=== PATIENT | male | born 1930 | race Caucasian/White ===

== ENCOUNTER 2018-07-17 12:47 | Inpatient (IN) | payer MEDICARE, BC ==
--- NOTE | 2018-07-17 13:13 | ED ---
General Adult HPI - General Chief complaint: Shortness of Breath Stated complaint: altered Time Seen by Provider: 07/17/18 12:50 Source: EMS, RN notes reviewed Mode of arrival: ambulatory Limitations: no limitations - History of Present Illness Initial comments: This is an 87-year-old male with past medical history significant for recent pneumonia for which is been treated high cholesterol and previous bypass surgery. Patient is unable to give any significant history currently there is no family with. The history I received from EMS and the nurses received from the detention was that the patient is more altered mentally and his difficulty breathing has worsened and he sounds as though he is wetter when he coughs. There is been no history of fevers there's been no history of any chest pain is been no history of abdominal pain no history of nausea vomiting or diarrhea. When I asked the patient if he isn't in any pain he denies. - Related Data Home Medications Medication Instructions Recorded Confirmed Citalopram Hydrobromide [CeleXA] 10 mg PO DAILY 03/21/14 07/17/18 Metoprolol Tartrate [Lopressor] 25 mg PO BID 09/29/15 07/17/18 Acetaminophen [Tylenol] 650 mg PO Q6HR PRN 09/30/15 07/17/18 Levothyroxine Sodium [Synthroid] 50 mcg PO DAILY 08/01/17 07/17/18 Amino Acids/Protein Hydrolys 30 ml PO DAILY 07/17/18 07/17/18 [Pro-Stat Supplement] Azithromycin [Zithromax] 250 mg PO DAILY 07/17/18 07/17/18 Bisacodyl [Dulcolax] 10 mg RECTAL DAILY PRN 07/17/18 07/17/18 Diclofenac Sodium [Voltaren Gel] 2 gram TOPICAL DAILY PRN 07/17/18 07/17/18 Ipratropium-Albuterol Nebulize 3 ml INHALATION RT-Q6H PRN 07/17/18 07/17/18 [Duoneb 0.5 mg-3 mg/3 ml Soln] Polymyxin B-Trimeth Sulf Ophth 1 drops BOTH EYES Q4H 07/17/18 07/17/18 [Polytrim Opthalmic] Pravastatin Sodium [Pravachol] 80 mg PO HS 07/17/18 07/17/18 Warfarin Sodium 6 mg PO HS 07/17/18 07/17/18 Warfarin [Coumadin] 0.5 mg PO HS 07/17/18 07/17/18 guaiFENesin [Diabetic Tussin Ex] 200 mg PO Q6H PRN 07/17/18 07/17/18 Previous Rx's Medication Instructions Recorded Isosorbide Mononitrate ER [Imdur] 15 mg PO DAILY dose 08/04/17 Allergies Allergy/AdvReac Type Severity Reaction Status Date / Time Penicillins Allergy Rash/Hives Verified 07/17/18 13:23 Review of Systems ROS Statement: Those systems with pertinent positive or pertinent negative responses have been documented in the HPI. ROS Other: All systems not noted in ROS Statement are negative. 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 Last Myocardial Infarction Date:: 2008 History of Any Multi-Drug Resistant Organisms: None Reported Past Surgical History: Adenoidectomy, Appendectomy, Coronary Bypass/CABG, Heart Catheterization With Stent, Hernia Repair, Joint Replacement, Prostate Surgery, Tonsillectomy Additional Past Surgical History / Comment(s): Inferior vena cava filter placement, bilateral cataracts removed, prostatectomy, total L hip arthroplasty , back surgery, bowel resection d/t cancer, colonoscopy, Past Anesthesia/Blood Transfusion Reactions: No Reported Reaction Date of Last Stent Placement:: 2008 Past Psychological History: No Psychological Hx Reported Smoking Status: Former smoker Past Alcohol Use History: None Reported Past Drug Use History: None Reported - Past Family History Mother History Unknown: Yes General Exam - General Exam Comments Initial Comments: GENERAL: Patient is well-developed and well-nourished. Patient is nontoxic and well- hydrated and is in mild distress. ENT: Neck is soft and supple. No significant lymphadenopathy is noted. Oropharynx is clear. Moist mucous membranes. Neck has full range of motion without eliciting any pain. EYES: The sclera were anicteric and conjunctiva were pink and moist. Extraocular movements were intact and pupils were equal round and reactive to light. Eyelids were unremarkable. PULMONARY: Patient does not take good breaths but there is some crackles in the left base CARDIOVASCULAR: There is a regular rate and rhythm without any murmurs gallops or rubs. ABDOMEN: Soft and nontender with normal bowel sounds. No palpable organomegaly was noted. There is no palpable pulsatile mass. SKIN: Skin is clear with no lesions or rashes and otherwise unremarkable. NEUROLOGIC: Patient is alert and oriented x3. Cranial nerves II through XII are grossly intact. Motor and sensory are also intact. Normal speech, volume and content. Symmetrical smile. MUSCULOSKELETAL: Normal extremities with adequate strength and full range of motion. LYMPHATICS: No significant lymphadenopathy is noted PSYCHIATRIC: Unable to assess secondary to the fact that he is altered Limitations: no limitations Course Vital Signs 07/17/18 07/17/18 07/17/18 12:49 12:50 13:00 Temperature 98.5 F Pulse Rate 96 96 Respiratory 22 46 H Rate Blood Pressure 123/55 123/55 O2 Sat by Pulse 92 L 95 93 L Oximetry 07/17/18 07/17/18 07/17/18 13:10 13:20 13:30 Temperature Pulse Rate 91 93 94 Respiratory 36 H 33 H 19 Rate Blood Pressure 105/45 105/45 105/45 O2 Sat by Pulse 91 L 93 L 93 L Oximetry 07/17/18 07/17/18 07/17/18 13:31 13:40 13:50 Temperature Pulse Rate 94 Respiratory 24 30 H Rate Blood Pressure 114/58 114/58 O2 Sat by Pulse 92 L Oximetry 07/17/18 07/17/18 07/17/18 14:00 14:10 14:20 Temperature Pulse Rate 92 Respiratory 24 28 H 40 H Rate Blood Pressure 114/58 109/69 109/69 O2 Sat by Pulse 92 L 92 L 93 L Oximetry 07/17/18 07/17/18 07/17/18 14:30 14:40 14:50 Temperature Pulse Rate 93 93 Respiratory 15 18 15 Rate Blood Pressure 109/69 119/70 119/70 O2 Sat by Pulse 94 L 94 L 95 Oximetry 07/17/18 07/17/18 15:00 15:09 Temperature 98.2 F Pulse Rate 93 93 Respiratory 8 L 25 H Rate Blood Pressure 119/70 100/50 O2 Sat by Pulse 94 L 95 Oximetry Medical Decision Making - Medical Decision Making EKG shows normal sinus rhythm at 95 bpm AL interval is 170 QRS is 90 QT interval 382 QTC is 480. Patient's EKG shows T-wave inversions in V1 and V2 V3 and V4. These were not seen on previous EKG. Chest x-ray shows a pattern consistent with atypical pneumonia. I started the patient on Zosyn and Levaquin. Patient's lactic was mildly elevated. Patient had a high white count with the shift. I spoke with because I admitted the patient he agreed to accept the admission. - Lab Data Result diagrams: 07/17/18 13:31 07/17/18 13:31 Lab Results 07/17/18 07/17/18 07/17/18 Range/Units 13:31 13:31 13:31 WBC 18.8 H (3.8-10.6) k/uL RBC 4.20 L (4.30-5.90) m/uL Hgb 11.6 L (13.0-17.5) gm/dL Hct 36.4 L (39.0-53.0) % MCV 86.6 (80.0-100.0) fL MCH 27.5 (25.0-35.0) pg MCHC 31.8 (31.0-37.0) g/dL RDW 14.8 (11.5-15.5) % Plt Count 386 (150-450) k/uL Neutrophils % 85 % Lymphocytes % 9 % Monocytes % 4 % Eosinophils % 1 % Basophils % 0 % Neutrophils # 16.1 H (1.3-7.7) k/uL Lymphocytes # 1.7 (1.0-4.8) k/uL Monocytes # 0.7 (0-1.0) k/uL Eosinophils # 0.2 (0-0.7) k/uL Basophils # 0.0 (0-0.2) k/uL Hypochromasia Moderate PT (9.0-12.0) sec INR (<1.2) APTT (22.0-30.0) sec Sodium 142 (137-145) mmol/L Potassium 4.0 (3.5-5.1) mmol/L Chloride 105 (98-107) mmol/L Carbon Dioxide 30 (22-30) mmol/L Anion Gap 7 mmol/L BUN 32 H (9-20) mg/dL Creatinine 0.74 (0.66-1.25) mg/dL Est GFR (CKD-EPI)AfAm >90 (>60 ml/min/1.73 sqM) Est GFR (CKD-EPI)NonAf 82 (>60 ml/min/1.73 sqM) Glucose 121 H (74-99) mg/dL Plasma Lactic Acid Jassi (0.7-2.0) mmol/L Calcium 9.0 (8.4-10.2) mg/dL Magnesium 2.2 (1.6-2.3) mg/dL Total Bilirubin 0.6 (0.2-1.3) mg/dL AST 22 (17-59) U/L ALT 17 L (21-72) U/L Alkaline Phosphatase 91 (38-126) U/L Total Creatine Kinase 29 L (55-170) U/L CK-MB (CK-2) 1.6 (0.0-2.4) ng/mL CK-MB (CK-2) Rel Index 5.5 Troponin I <0.012 (0.000-0.034) ng/mL NT-Pro-B Natriuret Pep pg/mL Total Protein 6.3 (6.3-8.2) g/dL Albumin 2.7 L (3.5-5.0) g/dL Urine Color Urine Appearance (Clear) Urine pH (5.0-8.0) Ur Specific [place] (1.001-1.035) Urine Protein (Negative) Urine Glucose (UA) (Negative) Urine Ketones (Negative) Urine Blood (Negative) Urine Nitrite (Negative) Urine Bilirubin (Negative) Urine Urobilinogen (<2.0) mg/dL Ur Leukocyte Esterase (Negative) Urine RBC (0-5) /hpf Urine WBC (0-5) /hpf Hyaline Casts (0-2) /lpf Urine Mucus (None) /hpf 07/17/18 07/17/18 07/17/18 Range/Units 13:31 13:31 13:31 WBC (3.8-10.6) k/uL RBC (4.30-5.90) m/uL Hgb (13.0-17.5) gm/dL Hct (39.0-53.0) % MCV (80.0-100.0) fL MCH (25.0-35.0) pg MCHC (31.0-37.0) g/dL RDW (11.5-15.5) % Plt Count (150-450) k/uL Neutrophils % % Lymphocytes % % Monocytes % % Eosinophils % % Basophils % % Neutrophils # (1.3-7.7) k/uL Lymphocytes # (1.0-4.8) k/uL Monocytes # (0-1.0) k/uL Eosinophils # (0-0.7) k/uL Basophils # (0-0.2) k/uL Hypochromasia PT 62.1 H (9.0-12.0) sec INR 6.8 H* (<1.2) APTT 40.9 H (22.0-30.0) sec Sodium (137-145) mmol/L Potassium (3.5-5.1) mmol/L Chloride (98-107) mmol/L Carbon Dioxide (22-30) mmol/L Anion Gap mmol/L BUN (9-20) mg/dL Creatinine (0.66-1.25) mg/dL Est GFR (CKD-EPI)AfAm (>60 ml/min/1.73 sqM) Est GFR (CKD-EPI)NonAf (>60 ml/min/1.73 sqM) Glucose (74-99) mg/dL Plasma Lactic Acid Jassi 2.1 H* (0.7-2.0) mmol/L Calcium (8.4-10.2) mg/dL Magnesium (1.6-2.3) mg/dL Total Bilirubin (0.2-1.3) mg/dL AST (17-59) U/L ALT (21-72) U/L Alkaline Phosphatase (38-126) U/L Total Creatine Kinase (55-170) U/L CK-MB (CK-2) (0.0-2.4) ng/mL CK-MB (CK-2) Rel Index Troponin I (0.000-0.034) ng/mL NT-Pro-B Natriuret Pep 1210 pg/mL Total Protein (6.3-8.2) g/dL Albumin (3.5-5.0) g/dL Urine Color Urine Appearance (Clear) Urine pH (5.0-8.0) Ur Specific [place] (1.001-1.035) Urine Protein (Negative) Urine Glucose (UA) (Negative) Urine Ketones (Negative) Urine Blood (Negative) Urine Nitrite (Negative) Urine Bilirubin (Negative) Urine Urobilinogen (<2.0) mg/dL Ur Leukocyte Esterase (Negative) Urine RBC (0-5) /hpf Urine WBC (0-5) /hpf Hyaline Casts (0-2) /lpf Urine Mucus (None) /hpf 07/17/18 Range/Units 13:46 WBC (3.8-10.6) k/uL RBC (4.30-5.90) m/uL Hgb (13.0-17.5) gm/dL Hct (39.0-53.0) % MCV (80.0-100.0) fL MCH (25.0-35.0) pg MCHC (31.0-37.0) g/dL RDW (11.5-15.5) % Plt Count (150-450) k/uL Neutrophils % % Lymphocytes % % Monocytes % % Eosinophils % % Basophils % % Neutrophils # (1.3-7.7) k/uL Lymphocytes # (1.0-4.8) k/uL Monocytes # (0-1.0) k/uL Eosinophils # (0-0.7) k/uL Basophils # (0-0.2) k/uL Hypochromasia PT (9.0-12.0) sec INR (<1.2) APTT (22.0-30.0) sec Sodium (137-145) mmol/L Potassium (3.5-5.1) mmol/L Chloride (98-107) mmol/L Carbon Dioxide (22-30) mmol/L Anion Gap mmol/L BUN (9-20) mg/dL Creatinine (0.66-1.25) mg/dL Est GFR (CKD-EPI)AfAm (>60 ml/min/1.73 sqM) Est GFR (CKD-EPI)NonAf (>60 ml/min/1.73 sqM) Glucose (74-99) mg/dL Plasma Lactic Acid Jassi (0.7-2.0) mmol/L Calcium (8.4-10.2) mg/dL Magnesium (1.6-2.3) mg/dL Total Bilirubin (0.2-1.3) mg/dL AST (17-59) U/L ALT (21-72) U/L Alkaline Phosphatase (38-126) U/L Total Creatine Kinase (55-170) U/L CK-MB (CK-2) (0.0-2.4) ng/mL CK-MB (CK-2) Rel Index Troponin I (0.000-0.034) ng/mL NT-Pro-B Natriuret Pep pg/mL Total Protein (6.3-8.2) g/dL Albumin (3.5-5.0) g/dL Urine Color Yellow Urine Appearance Clear (Clear) Urine pH 5.5 (5.0-8.0) Ur Specific [place] 1.022 (1.001-1.035) Urine Protein Trace H (Negative) Urine Glucose (UA) Negative (Negative) Urine Ketones Trace H (Negative) Urine Blood Trace H (Negative) Urine Nitrite Negative (Negative) Urine Bilirubin Negative (Negative) Urine Urobilinogen 3.0 (<2.0) mg/dL Ur Leukocyte Esterase Negative (Negative) Urine RBC 3 (0-5) /hpf Urine WBC 2 (0-5) /hpf Hyaline Casts 1 (0-2) /lpf Urine Mucus Occasional H (None) /hpf Disposition Clinical Impression: Pneumonia, Coagulopathy, Sepsis Disposition: ADMITTED IP TO THIS [facility] Time of Disposition: 15:19
[2018-07-17 13:54] LABS: Basophils % (A) 0 %; Eosinophils # (A) 0.2 k/uL (0-0.7); Eosinophils % (A) 1 %; HCT 36.4 % (39.0-53.0); HGB 11.6 gm/dL (13.0-17.5); Hypochromasia Moderate; Lymphocytes # (A) 1.7 k/uL (1.0-4.8); Lymphocytes % (A) 9 %; MCH 27.5 pg (25.0-35.0); MCHC 31.8 g/dL (31.0-37.0); MCV 86.6 fL (80.0-100.0); Mean Platelet Volume 7.5; Monocytes # (A) 0.7 k/uL (0-1.0); Monocytes % (A) 4 %; Neutrophils # (A) 16.1 k/uL (1.3-7.7); Neutrophils % (A) 85 %; Platelet Count 386 k/uL (150-450); RDW 14.8 % (11.5-15.5); WBC 18.8 k/uL (3.8-10.6)
--- NOTE | 2018-07-17 14:02 | XR ---
EXAMINATION TYPE: XR chest 2V DATE OF EXAM: 07/17/2018 COMPARISON: 08/02/2017 HISTORY: 87-year-old male difficulty breathing, cough, altered mental status TECHNIQUE: AP and lateral views FINDINGS: Heart normal size. Median sternotomy wires. Diffuse increased medium and coarse interstitial densitie s throughout with some patchy bibasilar densities. No significant pleural effusion. IMPRESSION: New diffuse increased interstitial opacities. Correlate for possible etiologies including but not orr ited to atypical pneumonias, atypical infections, or interstitial pneumonitis. Follow-up recommended.
[2018-07-17 14:05] LABS: ALT 17 U/L (21-72); AST 22 U/L (17-59); Albumin 2.7 g/dL (3.5-5.0); Alkaline Phosphatase 91 U/L (38-126); Anion Gap 7 mmol/L; Blood Urea Nitrogen 32 mg/dL (9-20); Carbon Dioxide 30 mmol/L (22-30); Chloride 105 mmol/L (98-107); Glucose 121 mg/dL (74-99); Magnesium 2.2 mg/dL (1.6-2.3); Sodium 142 mmol/L (137-145); Total Bilirubin 0.6 mg/dL (0.2-1.3); Total Protein 6.3 g/dL (6.3-8.2)
[2018-07-17 14:19] LABS: Creatine Kinase 29 U/L (55-170)
[2018-07-17 14:22] LABS: Partial Thromboplastin Time 40.9 sec (22.0-30.0); Prothrombin Time 62.1 sec (9.0-12.0)
[2018-07-17 14:29] LABS: INR 6.8 (<1.2)
[2018-07-17 14:32] LABS: Creatine Kinase MB 1.6 ng/mL (0.0-2.4); Troponin I <0.012 ng/mL (0.000-0.034)
[2018-07-17] MEDS ORDERED: PIPERACILLIN-TAZOBACTAM 3.375 GM in DEXTROSE/WATER 1 50ML.BAG IVPB STA (14:43)
[2018-07-17 14:46] LABS: Appearance,Urine Clear (Clear); Bilirubin,Urine Negative (Negative); Blood,Urine Trace (Negative); Color,Urine Yellow; Glucose,Urine (UA) Negative (Negative); Hyaline Casts,Urine 1 /lpf (0-2); Ketones,Urine Trace (Negative); Leukocyte Esterase,Urine Negative (Negative); Mucus,Urine Occasional /hpf; Nitrite,Urine Negative (Negative); PH, Urine 5.5 (5.0-8.0); Protein,Urine Trace (Negative); RBC,Urine 3 /hpf (0-5); Specific Gravity,Urine 1.022 (1.001-1.035); WBC,Urine 2 /hpf (0-5)
[2018-07-17] MEDS ORDERED: LEVOFLOXACIN 750MG-D5W PMX 750 MG in DEXTROSE/WATER 1 150ML.BAG IVPB STA (15:19)
[2018-07-17] MEDS ORDERED: PNEUMONIA PROTOCOL UTILIZED 1 EACH MISC PO PRN (15:19)
[2018-07-17] MEDS ORDERED: LORazepam 2 MG/ML INJ IV PRN (17:53)
--- NOTE | 2018-07-17 17:55 | P.HPIM ---
History of Present Illness This is a pleasant 87 years old male with past medical history of coronary artery disease, congestive heart failure, CVA/TIA, hyperlipidemia, hypertension , bilateral pulmonary embolism on Coumadin, prostate cancer status post surgery , colon cancer status post surgery, skin cancer, hypothyroidism. He was sent from her skilled nursing for altered mental status and worsening dyspnea progressively associated with cough. Patient is poor historian. Information is a provided from the son and [id number] at bedside. As per family patient has been feeling and well for the last couple weeks, get worse over the last 34 days. When he gets more weaker and confused, associated with dyspnea and desaturating to 85 while off oxygen. He has some mild cuff. With no phlegm. There is no signs symptoms of bleeding from anywhere on both his INR 6.8. On admission On admission patient has been febrile, respiratory rate currently the 25, pressure 114/60, oxygen saturation 95% on 2 L nasal cannula of oxygen In the emergency room her WBC was 18.8 K, INR is high at 6.8. Creatinine 0.7. Sodium and potassium within normal limits. Plasma lactic acid 2.1 EKG shows normal normal sinus rhythm at 95, with inferior-posterior infarct, age undetermined. Chest x-ray shows new diffuse interstitial opacity In the emergency room patient was started on Zosyn and levofloxacin Review of Systems CONSTITUTIONAL: No fever, no malaise, no fatigue. HEENT: No recent visual problems or hearing problems. Denied any sore throat. CARDIOVASCULAR: No orthopnea, PND, no palpitations, no syncope. PULMONARY:no hemoptysis. GASTROINTESTINAL: No diarrhea, no nausea, no vomiting, no abdominal pain. Normoactive bowel sounds. NEUROLOGICAL: No headaches, no weakness, no numbness. HEMATOLOGICAL: Denies any bleeding or petechiae. GENITOURINARY: Denies any burning micturition, frequency, or urgency. MUSCULOSKELETAL/RHEUMATOLOGICAL: Denies any joint pain, swelling, or any muscle pain. ENDOCRINE: Denies any polyuria or polydipsia. 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 Last Myocardial Infarction Date:: 2008 History of Any Multi-Drug Resistant Organisms: None Reported Past Surgical History: Adenoidectomy, Appendectomy, Coronary Bypass/CABG, Heart Catheterization With Stent, Hernia Repair, Joint Replacement, Prostate Surgery, Tonsillectomy Additional Past Surgical History / Comment(s): Inferior vena cava filter placement, bilateral cataracts removed, prostatectomy, total L hip arthroplasty , back surgery, bowel resection d/t cancer, colonoscopy.skin ca face Past Anesthesia/Blood Transfusion Reactions: No Reported Reaction Date of Last Stent Placement:: 2008 Smoking Status: Former smoker - Past Family History Father Family Medical History: Unable to Obtain Mother History Unknown: Yes Family Medical History: Unable to Obtain Medications and Allergies Home Medications Medication Instructions Recorded Confirmed Type Citalopram Hydrobromide [CeleXA] 10 mg PO DAILY 03/21/14 07/17/18 History Metoprolol Tartrate [Lopressor] 25 mg PO BID 09/29/15 07/17/18 History Acetaminophen [Tylenol] 650 mg PO Q6HR PRN 09/30/15 07/17/18 History Levothyroxine Sodium [Synthroid] 50 mcg PO DAILY 08/01/17 07/17/18 History Isosorbide Mononitrate ER [Imdur] 15 mg PO DAILY dose 08/04/17 07/17/18 Rx Amino Acids/Protein Hydrolys 30 ml PO DAILY 07/17/18 07/17/18 History [Pro-Stat Supplement] Azithromycin [Zithromax] 250 mg PO DAILY 07/17/18 07/17/18 History Bisacodyl [Dulcolax] 10 mg RECTAL DAILY PRN 07/17/18 07/17/18 History Diclofenac Sodium [Voltaren Gel] 2 gram TOPICAL DAILY PRN 07/17/18 07/17/18 History Ipratropium-Albuterol Nebulize 3 ml INHALATION RT-Q6H PRN 07/17/18 07/17/18 History [Duoneb 0.5 mg-3 mg/3 ml Soln] Polymyxin B-Trimeth Sulf Ophth 1 drops BOTH EYES Q4H 07/17/18 07/17/18 History [Polytrim Opthalmic] Pravastatin Sodium [Pravachol] 80 mg PO HS 10/15/18 10/15/18 History Warfarin Sodium 6 mg PO HS 07/17/18 07/17/18 History Warfarin [Coumadin] 0.5 mg PO HS 07/17/18 07/17/18 History guaiFENesin [Diabetic Tussin Ex] 200 mg PO Q6H PRN 07/17/18 07/17/18 History Allergies Allergy/AdvReac Type Severity Reaction Status Date / Time Penicillins Allergy Rash/Hives Verified 07/17/18 13:23 Physical Exam Vitals: Vital Signs Temp Pulse Resp BP Pulse Ox 07/17/18 16:00 91 36 H 114/60 07/17/18 15:30 92 7 L 100/50 07/17/18 15:09 93 25 H 100/50 95 07/17/18 15:00 98.2 F 93 8 L 119/70 94 L 07/17/18 14:50 15 119/70 95 07/17/18 14:40 93 18 119/70 94 L 07/17/18 14:30 93 15 109/69 94 L 07/17/18 14:20 40 H 109/69 93 L 07/17/18 14:10 92 28 H 109/69 92 L 07/17/18 14:00 24 114/58 92 L 07/17/18 13:50 114/58 07/17/18 13:40 94 30 H 114/58 92 L 07/17/18 13:31 24 07/17/18 13:30 94 19 105/45 93 L 07/17/18 13:20 93 33 H 105/45 93 L 07/17/18 13:10 91 36 H 105/45 91 L 07/17/18 13:00 96 46 H 123/55 93 L 07/17/18 12:50 95 07/17/18 12:49 98.5 F 96 22 123/55 92 L Intake and Output 07/17/18 07/17/18 07/17/18 06:59 14:59 22:59 Other: Weight 79.379 kg -GENERAL: The patient is alert and oriented x1 to person only, patient in mild- to-moderate respiratory distress. Well developed, well nourished. HEENT: Pupils are round and equally reacting to light. EOMI. No scleral icterus. No conjunctival pallor. Normocephalic, atraumatic. No pharyngeal erythema. No thyromegaly. CARDIOVASCULAR: S1 and S2 present. No murmurs, rubs, or gallops. -PULMONARY: Chest is clear to auscultation, no wheezing . Bilateral inspiratory crackles. ABDOMEN: Soft, nontender, nondistended, normoactive bowel sounds. No palpable organomegaly. MUSCULOSKELETAL: No joint swelling or deformity. EXTREMITIES: No cyanosis, clubbing, or pedal edema. NEUROLOGICAL: Gross neurological examination did not reveal any focal deficits. SKIN: No rashes. Results CBC & Chem 7: 07/17/18 13:31 07/17/18 13:31 Labs: Abnormal Lab Results - Last 24 Hours (Table) 07/17/18 07/17/18 07/17/18 Range/Units 13:31 13:31 13:31 WBC 18.8 H (3.8-10.6) k/uL RBC 4.20 L (4.30-5.90) m/uL Hgb 11.6 L (13.0-17.5) gm/dL Hct 36.4 L (39.0-53.0) % Neutrophils # 16.1 H (1.3-7.7) k/uL PT (9.0-12.0) sec INR (<1.2) APTT (22.0-30.0) sec BUN 32 H (9-20) mg/dL Glucose 121 H (74-99) mg/dL Plasma Lactic Acid Jassi (0.7-2.0) mmol/L ALT 17 L (21-72) U/L Total Creatine Kinase 29 L (55-170) U/L Albumin 2.7 L (3.5-5.0) g/dL Urine Protein (Negative) Urine Ketones (Negative) Urine Blood (Negative) Urine Mucus (None) /hpf 07/17/18 07/17/18 07/17/18 Range/Units 13:31 13:31 13:46 WBC (3.8-10.6) k/uL RBC (4.30-5.90) m/uL Hgb (13.0-17.5) gm/dL Hct (39.0-53.0) % Neutrophils # (1.3-7.7) k/uL PT 62.1 H (9.0-12.0) sec INR 6.8 H* (<1.2) APTT 40.9 H (22.0-30.0) sec BUN (9-20) mg/dL Glucose (74-99) mg/dL Plasma Lactic Acid Jassi 2.1 H* (0.7-2.0) mmol/L ALT (21-72) U/L Total Creatine Kinase (55-170) U/L Albumin (3.5-5.0) g/dL Urine Protein Trace H (Negative) Urine Ketones Trace H (Negative) Urine Blood Trace H (Negative) Urine Mucus Occasional H (None) /hpf Assessment and Plan Assessment: Healthcare associated pneumonia 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 Labs and medication were reviewed. Continue with the same treatment. Continue symptomatic treatment. Resume skilled nursing medication. Monitor lytes and vitals. Continue with antibiotics. Call pulmonary consult. Hold Coumadin while INR is above 3 . Continue Coumadin with therapeutic INR goal at 2-3 .Further recommendation is based on the clinical course of the patient CT of the head: Pending DVT prophylaxis: Coumadin on hold for supratherapeutic INR GI prophylaxis: Pepcid Prognosis is guarded Patient is DO NOT RESUSCITATE, confirmed with family son and daughter in law at bedside
--- NOTE | 2018-07-17 18:44 | CT ---
EXAMINATION: CT brain wo con DATE AND TIME: 07/17/2018 6:32 PM CLINICAL INDICATION: confusion with high INR Increased confusion with possible fall TECHNIQUE: Standard departmental protocol. COMPARISON: CT 08/01/2017 FINDINGS: The calvarium is intact. There is no intracranial hemorrhage. There is no intracranial mass or mass effect. No definite new intra-axial or extra-axial attenuation defect. The paranasal sinuses, middle ear cavities, and mastoid sinus air cells are clear. The orbits are unremarkable. IMPRESSION: NO ACUTE PROCESS.
[2018-07-17] MEDS: IPRATROPIUM-ALBUTEROL 3 ML NEB INHALATION SCH ×2 (19:17→19:28)
[2018-07-18] MEDS: PIPERACILLIN-TAZOBACTAM 3.375 GM in DEXTROSE/WATER 1 50ML.BAG IVPB SCH ×4 (00:14→23:21)
--- NOTE | 2018-07-18 07:34 | P.PN ---
Subjective This is a pleasant 87 years old male with past medical history of coronary artery disease, congestive heart failure, CVA/TIA, hyperlipidemia, hypertension , bilateral pulmonary embolism on Coumadin, prostate cancer status post surgery , colon cancer status post surgery, skin cancer, hypothyroidism. [facility] was [facility] for altered mental status and worsening dyspnea progressively associated with cough. Patient is poor historian. Information is a provided from the son and [id number] at bedside. As per family patient has been feeling and well for the last couple weeks, get worse over the last 34 days. When he gets more weaker and confused, associated with dyspnea and desaturating to 85 while off oxygen. He has some mild cuff. With no phlegm. There is no signs symptoms of bleeding from anywhere on both his INR 6.8. On admission On admission patient has been febrile, respiratory rate currently the 25, pressure 114/60, oxygen saturation 95% on 2 L nasal cannula of oxygen In the emergency room her WBC was 18.8 K, INR is high at 6.8. Creatinine 0.7. Sodium and potassium within normal limits. Plasma lactic acid 2.1 EKG shows normal normal sinus rhythm at 95, with inferior-posterior infarct, age undetermined. Chest x-ray shows new diffuse interstitial opacity In the emergency room patient was started on Zosyn and levofloxacin 07/18/18 Patient was lying in bed, still tachypneic and dyspneic. Patient is more awake today and he has good eye contact however he still confused and mumbles, compared to yesterday when he was moaning all the time. CT of the brain came back negative. Patient has abnormal chest x-ray yesterday showing diffuse interstitial opacities suspicious for pneumonia. Patient was started on antibiotic Zosyn and Levaquin. His repeat chest x-ray still pending. He is saturating 92-96 on oxygen 2 L/m via nasal cannula. afebrile. Patient has leukocytosis on admission. Objective - Vital Signs Vital signs: Vital Signs Temp 96.7 F L 07/18/18 07:00 Pulse 78 07/18/18 07:00 Resp 20 07/18/18 07:00 BP 148/65 07/18/18 07:00 Pulse Ox 96 07/18/18 07:00 Intake & Output 07/17/18 07/18/18 07/18/18 18:59 06:59 18:59 Intake Total 300 Balance 300 Weight 79.379 kg Intake: Oral 300 Other: # Voids 1 - Exam -GENERAL: The patient is more awake today and looks at me however he still confused , patient in [id number] respiratory distress. Well developed, well nourished. HEENT: Pupils are round and equally reacting to light. EOMI. No scleral icterus. No conjunctival pallor. Normocephalic, atraumatic. No pharyngeal erythema. No thyromegaly. CARDIOVASCULAR: S1 and S2 present. No murmurs, rubs, or gallops. -PULMONARY: Chest is clear to auscultation, no wheezing . Bilateral inspiratory crackles. ABDOMEN: Soft, nontender, nondistended, normoactive bowel sounds. No palpable organomegaly. MUSCULOSKELETAL: No joint swelling or deformity. EXTREMITIES: No cyanosis, clubbing, or pedal edema. NEUROLOGICAL: Gross neurological examination did not reveal any focal deficits. SKIN: No rashes. - Labs CBC & Chem 7: 07/17/18 13:31 07/17/18 13:31 Labs: Abnormal Lab Results - Last 24 Hours (Table) 07/17/18 07/17/18 07/17/18 Range/Units 13:31 13:31 13:31 WBC 18.8 H (3.8-10.6) k/uL RBC 4.20 L (4.30-5.90) m/uL Hgb 11.6 L (13.0-17.5) gm/dL Hct 36.4 L (39.0-53.0) % Neutrophils # 16.1 H (1.3-7.7) k/uL PT (9.0-12.0) sec INR (<1.2) APTT (22.0-30.0) sec BUN 32 H (9-20) mg/dL Glucose 121 H (74-99) mg/dL Plasma Lactic Acid Jassi (0.7-2.0) mmol/L ALT 17 L (21-72) U/L Total Creatine Kinase 29 L (55-170) U/L Albumin 2.7 L (3.5-5.0) g/dL Urine Protein (Negative) Urine Ketones (Negative) Urine Blood (Negative) Urine Mucus (None) /hpf 10/15/18 10/15/18 10/15/18 Range/Units 13:31 13:31 13:46 WBC (3.8-10.6) k/uL RBC (4.30-5.90) m/uL Hgb (13.0-17.5) gm/dL Hct (39.0-53.0) % Neutrophils # (1.3-7.7) k/uL PT 62.1 H (9.0-12.0) sec INR 6.8 H* (<1.2) APTT 40.9 H (22.0-30.0) sec BUN (9-20) mg/dL Glucose (74-99) mg/dL Plasma Lactic Acid Jassi 2.1 H* (0.7-2.0) mmol/L ALT (21-72) U/L Total Creatine Kinase (55-170) U/L Albumin (3.5-5.0) g/dL Urine Protein Trace H (Negative) Urine Ketones Trace H (Negative) Urine Blood Trace H (Negative) Urine Mucus Occasional H (None) /hpf Assessment and Plan Assessment: Healthcare associated pneumonia 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 Labs and medication were reviewed. Continue with the same treatment. Continue symptomatic treatment. Resume [facility]pc medication. Monitor lytes and vitals. Continue with antibiotics. Call pulmonary consult. Hold Coumadin while INR is above 3 . Continue Coumadin with therapeutic INR goal at 2-3 .Further recommendation is based on the clinical course of the patient CT of the head: Pending DVT prophylaxis: Coumadin on hold for supratherapeutic INR GI prophylaxis: Pepcid Prognosis is guarded Patient is DO NOT RESUSCITATE, confirmed with family son and daughter in law at bedside
[2018-07-18] MEDS: IPRATROPIUM-ALBUTEROL 3 ML NEB INHALATION SCH ×4 (08:07→21:26)
--- NOTE | 2018-07-18 08:13 | XR ---
EXAMINATION TYPE: XR chest 2V DATE OF EXAM: 07/18/2018 COMPARISON: 07/17/2018 HISTORY: Pneumonia. Follow-up exam. TECHNIQUE: Frontal and lateral views of the chest are obtained. FINDINGS: There is diffuse interstitial prominence again redemonstrated with increasing confluence i n the right lung base. Cardiomediastinal silhouette is upper limits normal with post CABG changes of the chest. There is diffuse osseous demineralization and mild multilevel degenerative changes of the thoracic spine. No pneumothorax. Flattening of the diaphragms creates artificial blunting of the cost ophrenic angles as there is no sizable pleural effusion on the lateral view. Flattening of the diaphr agm suggests a component of underlying pulmonary emphysema. IMPRESSION: Persistent diffuse interstitial prominence with increasing confluence of the right lung base again suspicious for diffuse pneumonitis and developing right lower lobe focal pneumonia
[2018-07-18 09:49] LABS: Anion Gap 8 mmol/L; Blood Urea Nitrogen 26 mg/dL (9-20); Calcium 8.9 mg/dL (8.4-10.2); Carbon Dioxide 32 mmol/L (22-30); Chloride 105 mmol/L (98-107); Glucose 126 mg/dL (74-99); Potassium 3.6 mmol/L (3.5-5.1); Sodium 145 mmol/L (137-145)
[2018-07-18 09:50] LABS: Prothrombin Time 80.3 sec (9.0-12.0)
[2018-07-18 10:08] LABS: INR 8.6 (<1.2)
--- NOTE | 2018-07-18 11:03 | P.CNPUL ---
History of Present Illness Consult date: 07/18/18 Reason for consult: dyspnea, cough, hypoxemia, pneumonia, pulmonary fibrosis, abnormal CXR/CT Chief complaint: Mental status changes, shortness of breath, hypoxemia History of present illness: Primary consult dated 07/18/2018 This is an 87-year-old male who was admitted with a diagnosis of possible pneumonia. He is not a particularly good historian. The patient was not able to give any history. He is not sure why he is in the hospital. Apparently according to EMS and the nurses, at the [facility], he apparently had to mental status changes and some difficulty breathing with audible abnormal breath sounds. A chest x-ray reveals some interstitial changes consistent with either interstitial fibrosis and/or interstitial edema and/or interstitial pneumonia. For that reason the patient was admitted. He is a DO NOT RESUSCITATE. She resides at [facility]. According to the medical record , the patient has a history of CAD chest pain heart failure CVA hyperlipidemia hypertension myocardial infarction pulmonary embolism prostate cancer with previous prostatectomy colon cancer with previous colon cancer surgery hypothyroidism and neuropathy. Surgical histories include appendectomy bypass grafting heart catheterization with stent hernia repair joint replacement prostatectomy tonsillectomy IVC filter placement, bilateral cataract surgery, left hip arthroplasty back surgery and colectomy. He apparently is a former smoker. Review of Systems ROS unobtainable: due to mental status (The patient has a very poor mental status and is a poor historian and no additional review of systems can be obtained. 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 Last Myocardial Infarction Date:: 2008 History of Any Multi-Drug Resistant Organisms: None Reported Past Surgical History: Adenoidectomy, Appendectomy, Coronary Bypass/CABG, Heart Catheterization With Stent, Hernia Repair, Joint Replacement, Prostate Surgery, Tonsillectomy Additional Past Surgical History / Comment(s): Inferior vena cava filter placement, bilateral cataracts removed, prostatectomy, total L hip arthroplasty , back surgery, bowel resection d/t cancer, colonoscopy.skin ca face Past Anesthesia/Blood Transfusion Reactions: No Reported Reaction Date of Last Stent Placement:: 2008 Smoking Status: Former smoker - Past Family History Father Family Medical History: Unable to Obtain Mother History Unknown: Yes Family Medical History: Unable to Obtain Medications and Allergies Home Medications Medication Instructions Recorded Confirmed Type Citalopram Hydrobromide [CeleXA] 10 mg PO DAILY 03/21/14 07/17/18 History Metoprolol Tartrate [Lopressor] 25 mg PO BID 09/29/15 07/17/18 History Acetaminophen [Tylenol] 650 mg PO Q6HR PRN 09/30/15 07/17/18 History Levothyroxine Sodium [Synthroid] 50 mcg PO DAILY 08/01/17 07/17/18 History Isosorbide Mononitrate ER [Imdur] 15 mg PO DAILY dose 08/04/17 07/17/18 Rx Amino Acids/Protein Hydrolys 30 ml PO DAILY 07/17/18 07/17/18 History [Pro-Stat Supplement] Azithromycin [Zithromax] 250 mg PO DAILY 07/17/18 07/17/18 History Bisacodyl [Dulcolax] 10 mg RECTAL DAILY PRN 07/17/18 07/17/18 History Diclofenac Sodium [Voltaren Gel] 2 gram TOPICAL DAILY PRN 07/17/18 07/17/18 History Ipratropium-Albuterol Nebulize 3 ml INHALATION RT-Q6H PRN 07/17/18 07/17/18 History [Duoneb 0.5 mg-3 mg/3 ml Soln] Polymyxin B-Trimeth Sulf Ophth 1 drops BOTH EYES Q4H 07/17/18 07/17/18 History [Polytrim Opthalmic] Pravastatin Sodium [Pravachol] 80 mg PO HS 07/17/18 07/17/18 History Warfarin Sodium 6 mg PO HS 07/17/18 07/17/18 History Warfarin [Coumadin] 0.5 mg PO HS 07/17/18 07/17/18 History guaiFENesin [Diabetic Tussin Ex] 200 mg PO Q6H PRN 07/17/18 07/17/18 History Allergies Allergy/AdvReac Type Severity Reaction Status Date / Time Penicillins Allergy Rash/Hives Verified 07/17/18 13:23 Physical Exam Osteopathic Statement: *. No significant issues noted on an osteopathic structural exam other than those noted in the History and Physical/Consult. Vitals: Vital Signs Temp Pulse Pulse Resp BP BP Pulse Ox 07/18/18 08:19 80 07/18/18 08:07 84 07/18/18 07:00 96.7 F L 78 20 148/65 96 07/17/18 23:17 20 07/17/18 22:15 98.5 F 87 20 169/73 92 L 07/17/18 19:42 90 07/17/18 19:28 89 96 07/17/18 19:00 98.8 F 90 20 152/72 95 07/17/18 18:03 98.3 F 07/17/18 16:00 91 20 114/60 07/17/18 15:30 92 16 100/50 07/17/18 15:09 93 25 H 100/50 95 07/17/18 15:00 98.2 F 93 16 119/70 94 L 07/17/18 14:50 15 119/70 95 07/17/18 14:40 93 18 119/70 94 L 07/17/18 14:30 93 15 109/69 94 L 07/17/18 14:20 20 109/69 93 L 07/17/18 14:10 92 28 H 109/69 92 L 07/17/18 14:00 24 114/58 92 L 07/17/18 13:50 114/58 07/17/18 13:40 94 30 H 114/58 92 L 07/17/18 13:31 24 07/17/18 13:30 94 19 105/45 93 L 07/17/18 13:20 93 33 H 105/45 93 L 07/17/18 13:10 91 36 H 105/45 91 L 07/17/18 13:00 96 46 H 123/55 93 L 07/17/18 12:50 95 07/17/18 12:49 98.5 F 96 22 123/55 92 L Intake and Output 07/17/18 07/18/18 07/18/18 22:59 06:59 14:59 Intake Total 0 300 Balance 0 300 Intake: Oral 0 300 Other: Voiding Method Incontinent # Voids 1 No acute distress, confused, poor historian, nasal O2 in place. HEENT examination is grossly unremarkable. Mucous membranes are moist. No oral lesions. Neck supple. Full range of motion. No adenopathy thyromegaly or neck vein distention. Cardiovascular examination reveals regular rhythm rate. S1-S2 normal. No S3 or S4. No discernible murmur noted. Heart sounds are distant. Lungs reveal bilateral crackles. Breath sounds are coarse. There are some expiratory rhonchi. No wheezes. Breath sounds equal bilaterally. Abdomen soft and bowel sounds are heard. No masses or tenderness. Extremities are intact. No cyanosis clubbing or edema. Skin is without rash or lesion. Neurologic examination is brief but nonfocal. Results - Laboratory Findings CBC and BMP: 07/17/18 13:31 07/18/18 09:15 PT/INR, D-dimer PT 80.3 sec (9.0-12.0) H 07/18/18 09:15 INR 8.6 (<1.2) H* 07/18/18 09:15 Abnormal lab findings: Abnormal Labs 07/17/18 07/17/18 07/17/18 13:31 13:31 13:31 WBC 18.8 H RBC 4.20 L Hgb 11.6 L Hct 36.4 L Neutrophils # 16.1 H PT INR APTT Carbon Dioxide BUN 32 H Glucose 121 H Plasma Lactic Acid Jassi ALT 17 L Total Creatine Kinase 29 L Albumin 2.7 L Urine Protein Urine Ketones Urine Blood Urine Mucus 07/17/18 07/17/18 07/17/18 13:31 13:31 13:46 WBC RBC Hgb Hct Neutrophils # PT 62.1 H INR 6.8 H* APTT 40.9 H Carbon Dioxide BUN Glucose Plasma Lactic Acid Jassi 2.1 H* ALT Total Creatine Kinase Albumin Urine Protein Trace H Urine Ketones Trace H Urine Blood Trace H Urine Mucus Occasional H 07/18/18 07/18/18 09:15 09:15 WBC RBC Hgb Hct Neutrophils # PT 80.3 H INR 8.6 H* APTT Carbon Dioxide 32 H BUN 26 H Glucose 126 H Plasma Lactic Acid Jassi ALT Total Creatine Kinase Albumin Urine Protein Urine Ketones Urine Blood Urine Mucus - Diagnostic Findings Chest x-ray: report reviewed, image reviewed (Labs, x-rays and medications are all reviewed.) Assessment and Plan Assessment: Assessment Shortness of breath, with mental status changes, which are likely multifactorial in part related to mild interstitial edema, interstitial fibrosis , and possible interstitial pneumonia. Since the patient [facility] a [facility], healthcare acquired pneumonia must be a consideration. History of CAD with previous bypass grafting History of CVA History of bilateral recurrent pulmonary emboli, status post filter placement History of hypertension History of hyperlipidemia History of CHF Prostate cancer, status post prostatectomy Previous colectomy for colon cancer History of hypothyroidism History of neuropathy Multiple other medical problems and comorbidities Plan: Plan dated 07/18/2018 White count is 18.8, hemoglobin 11.6, hematocrit 36.4 and platelet count is normal. His initial PT and INR were 62.1 and 6.8 respectively. Follow-up values included PT of 80.3 and INR of 8.6. Sodium potassium chloride normal. CO2 32 anion gap normal BUN 26 and creatinine 0.84. Lactic acid was initially 2.1 and subsequent lactic acid was 1.2. Urine looks relatively normal. N- terminal proBNP was modestly elevated at 1210 and troponin was less than 0.012. Chest x-ray shows diffuse interstitial changes and possibly some minimal consolidation at the right lung base. Again this could be consistent with pulmonary edema, interstitial pneumonia, for interstitial fibrosis. There may be a component of one or more of these elements at this time. Currently, the patient's on updrafts Levaquin and Ativan Zosyn. We will continue to follow. Prognosis is guarded. Time with Patient: Greater than 30
[2018-07-18] MEDS ORDERED: PHYTONADIONE ORAL 5 MG/5 ML ORAL.SYRG PO STA (11:15)
[2018-07-18] MEDS ORDERED: hydrALAZINE HCL 20 MG/ML 1 ML VIAL IVP PRN (11:29)
[2018-07-18 11:32] LABS: Basophils % (A) 0 %; Eosinophils # (A) 0.1 k/uL (0-0.7); Eosinophils % (A) 1 %; HCT 36.4 % (39.0-53.0); HGB 11.5 gm/dL (13.0-17.5); Hypochromasia Marked; Lymphocytes # (A) 1.2 k/uL (1.0-4.8); Lymphocytes % (A) 11 %; MCH 27.6 pg (25.0-35.0); MCHC 31.5 g/dL (31.0-37.0); MCV 87.9 fL (80.0-100.0); Mean Platelet Volume 7.4; Monocytes # (A) 0.4 k/uL (0-1.0); Monocytes % (A) 3 %; Neutrophils # (A) 9.7 k/uL (1.3-7.7); Neutrophils % (A) 85 %; Platelet Count 316 k/uL (150-450); RBC 4.15 m/uL (4.30-5.90); RDW 14.9 % (11.5-15.5); WBC 11.5 k/uL (3.8-10.6)
[2018-07-18] MEDS ORDERED: MORPHINE SULFATE 2 MG/ML SYRINGE IVP STA (12:43)
[2018-07-18 14:04] VITALS: BMI 23.7
--- NOTE | 2018-07-18 14:26 | FL ---
EXAMINATION TYPE: FL barium swallow w video DATE OF EXAM: 07/18/2018 COMPARISON: NONE HISTORY: Coughing during eating and drinking. FINDINGS: Patient was evaluated in real-time fluoroscopy in the lateral projection while ingesting barium mixe d with liquids. No aspiration or laryngeal penetration. Patient coughed during the procedure during ingestion. Patient refused solids for testing. See dictated report from speech pathology. 1 minute 45 seconds fluoroscopy time. No intraoperative images.
[2018-07-18] MEDS: LEVOFLOXACIN 750MG-D5W PMX 750 MG in DEXTROSE/WATER 1 150ML.BAG IVPB SCH (20:06)
[2018-07-19] MEDS: IPRATROPIUM-ALBUTEROL 3 ML NEB INHALATION SCH ×4 (07:07→21:58)
[2018-07-19] MEDS: PIPERACILLIN-TAZOBACTAM 3.375 GM in DEXTROSE/WATER 1 50ML.BAG IVPB SCH ×2 (08:09→16:26)
[2018-07-19 10:03] LABS: INR 1.5 (<1.2); Prothrombin Time 14.2 sec (9.0-12.0)
[2018-07-19 10:14] LABS: Basophils % (A) 0 %; Eosinophils # (A) 0.2 k/uL (0-0.7); Eosinophils % (A) 2 %; HCT 37.2 % (39.0-53.0); HGB 11.1 gm/dL (13.0-17.5); Hypochromasia Moderate; Lymphocytes # (A) 0.8 k/uL (1.0-4.8); Lymphocytes % (A) 7 %; MCH 26.3 pg (25.0-35.0); MCHC 29.9 g/dL (31.0-37.0); MCV 87.9 fL (80.0-100.0); Mean Platelet Volume 7.5; Monocytes # (A) 0.5 k/uL (0-1.0); Monocytes % (A) 4 %; Neutrophils # (A) 9.6 k/uL (1.3-7.7); Neutrophils % (A) 86 %; Platelet Count 343 k/uL (150-450); RBC 4.22 m/uL (4.30-5.90); RDW 14.8 % (11.5-15.5); WBC 11.2 k/uL (3.8-10.6)
[2018-07-19 10:15] LABS: Calcium 9.1 mg/dL (8.4-10.2); Potassium 3.5 mmol/L (3.5-5.1)
--- NOTE | 2018-07-19 11:32 | P.PN ---
Subjective Progress Note Date: 07/19/18 Principal diagnosis: Shortness of breath, mental status changes, multifactorial, in part related to mild interstitial edema, interstitial fibrosis, possible interstitial pneumonia. Primary consult dated 07/18/2018 This is an 87-year-old male who was admitted with a diagnosis of possible pneumonia. He is not a particularly good historian. The patient was not able to give any history. He is not sure why he is in the hospital. Apparently according to EMS and the nurses, at the [facility], he apparently had to mental status changes and some difficulty breathing with audible abnormal breath sounds. A chest x-ray reveals some interstitial changes consistent with either interstitial fibrosis and/or interstitial edema and/or interstitial pneumonia. For that reason the patient was admitted. He is a DO NOT RESUSCITATE. She resides at [facility]. According to the medical record , the patient has a history of CAD chest pain heart failure CVA hyperlipidemia hypertension myocardial infarction pulmonary embolism prostate cancer with previous prostatectomy colon cancer with previous colon cancer surgery hypothyroidism and neuropathy. Surgical histories include appendectomy bypass grafting heart catheterization with stent hernia repair joint replacement prostatectomy tonsillectomy IVC filter placement, bilateral cataract surgery, left hip arthroplasty back surgery and colectomy. He apparently is a former smoker. On 07/19/2018 patient seen in follow-up on medical surgical floor. He is breathing comfortably today, he denies any shortness of breath. Yesterday in the afternoon patient was having increased difficulty breathing, his cough is extremely weak, at times he has difficulty clearing his secretions. He is a high aspiration risk, he had a swallow evaluation and apparently he passed his test, however in view of his weak cough, patient's name is an aspiration risk, and was left on a modified diet with thickened liquids. He had ordered a BiPAP on as-needed basis yesterday, however patient never did needed. Also ask on 3 L per nasal cannula is 94%, vitals are stable, he patient is afebrile, lung sounds are positive for some scattered crackles. No wheezes. Today's labs have been reviewed, WBCs 11.2, hemoglobin is 11.1, INR is down to 1.5, patient was given some vitamin K yesterday for nerve VIII 0.6, no signs of any bleeding. Electrolytes are within normal limits with exception of CO2 which is a 31, BUN is 23 and creatinine 0.87. Sputum culture has been sent, and is pending at this time, blood cultures have been negative. Patient remains on antibiotic coverage in the form of Levaquin and Zosyn. He remains on nebulized bronchodilators. He seems to be calm and comfortable right now. He fed himself breakfast this morning. Objective - Vital Signs Vital signs: Vital Signs Temp 97.9 F 07/19/18 08:02 Pulse 78 07/19/18 11:21 Resp 20 07/19/18 08:02 BP 134/60 07/19/18 08:02 Pulse Ox 94 L 07/19/18 08:02 Intake & Output 07/18/18 07/19/18 07/19/18 18:59 06:59 18:59 Intake Total 400 Balance 400 Weight 79.379 kg 79.379 kg Intake: Oral 400 Other: Voiding Method Incontinent Diaper Diaper Incontinent # Voids 1 1 - Exam No acute distress, confused, poor historian, nasal O2 in place. HEENT examination is grossly unremarkable. Mucous membranes are moist. No oral lesions. Neck supple. Full range of motion. No adenopathy thyromegaly or neck vein distention. Cardiovascular examination reveals regular rhythm rate. S1-S2 normal. No S3 or S4. No discernible murmur noted. Heart sounds are distant. Lungs reveal bilateral crackles. Breath sounds are coarse. There are some expiratory rhonchi. No wheezes. Breath sounds equal bilaterally. Abdomen soft and bowel sounds are heard. No masses or tenderness. Extremities are intact. No cyanosis clubbing or edema. Skin is without rash or lesion. Neurologic examination is brief but nonfocal. - Labs CBC & Chem 7: 07/19/18 08:45 07/19/18 08:45 Labs: Abnormal Lab Results - Last 24 Hours (Table) 07/18/18 07/19/18 07/19/18 Range/Units 09:15 08:45 08:45 WBC 11.5 H 11.2 H (3.8-10.6) k/uL RBC 4.15 L 4.22 L (4.30-5.90) m/uL Hgb 11.5 L 11.1 L (13.0-17.5) gm/dL Hct 36.4 L 37.2 L (39.0-53.0) % MCHC 29.9 L (31.0-37.0) g/dL Neutrophils # 9.7 H 9.6 H (1.3-7.7) k/uL Lymphocytes # 0.8 L (1.0-4.8) k/uL PT (9.0-12.0) sec INR (<1.2) Carbon Dioxide 31 H (22-30) mmol/L BUN 23 H (9-20) mg/dL Glucose 140 H (74-99) mg/dL 07/19/18 Range/Units 08:45 WBC (3.8-10.6) k/uL RBC (4.30-5.90) m/uL Hgb (13.0-17.5) gm/dL Hct (39.0-53.0) % MCHC (31.0-37.0) g/dL Neutrophils # (1.3-7.7) k/uL Lymphocytes # (1.0-4.8) k/uL PT 14.2 H (9.0-12.0) sec INR 1.5 H (<1.2) Carbon Dioxide (22-30) mmol/L BUN (9-20) mg/dL Glucose (74-99) mg/dL Microbiology - Last 24 Hours (Table) 07/18/18 11:43 Gram Stain - Preliminary Sputum 07/17/18 13:31 Blood Culture - Preliminary Blood No Growth after 24 hours Assessment and Plan Plan: Shortness of breath, with mental status changes, which are likely multifactorial in part related to mild interstitial edema, interstitial fibrosis , and possible interstitial pneumonia. Since the patient resides at a [facility], healthcare acquired pneumonia must be a consideration. History of CAD with previous bypass grafting History of CVA History of bilateral recurrent pulmonary emboli, status post filter placement History of hypertension History of hyperlipidemia History of CHF Prostate cancer, status post prostatectomy Previous colectomy for colon cancer History of hypothyroidism History of neuropathy Multiple other medical problems and comorbidities Plan: Continue current antibiotic coverage, will await the final results of the sputum culture. Patient is afebrile, hemodynamically stable, use BiPAP on as- needed basis. Continue nebulized bronchodilators. Supervision and assistance with meals, maintain aspiration precautions. Long-term prognosis is extremely guarded, and the patient's family was inquiring about palliative care/hospice according to nursing staff. Patient would be a good candidate for palliative care at this time given his advanced age, multiple comorbidities, poor baseline functional status, and recurrent hospitalizations. I performed a history & physical examination of the patient and discussed their management with my nurse practitioner, Ayesha Winters. I reviewed the nurse practitioner's note and agree with the documented findings and plan of care. Lung sounds are bibasilar crackles. The findings and the impression was discussed with the patient. I attest to the documentation by the nurse practitioner. Time with Patient: Less than 30
--- NOTE | 2018-07-19 12:58 | P.PN ---
Subjective This is a pleasant 87 years old male with past medical history of coronary artery disease, congestive heart failure, CVA/TIA, hyperlipidemia, hypertension , bilateral pulmonary embolism on Coumadin, prostate cancer status post surgery , colon cancer status post surgery, skin cancer, hypothyroidism. [facility] was [facility] from her [facility] for altered mental status and worsening dyspnea progressively associated with cough. Patient is poor historian. Information is a provided from the son and ryggaavy-cl-lmo at bedside. As per family patient has been feeling and well for the last couple weeks, get worse over the last 34 days. When he gets more weaker and confused, associated with dyspnea and desaturating to 85 while off oxygen. He has some mild cuff. With no phlegm. There is no signs symptoms of bleeding from anywhere on both his INR 6.8. On admission On admission patient has been febrile, respiratory rate currently the 25, pressure 114/60, oxygen saturation 95% on 2 L nasal cannula of oxygen In the emergency room her WBC was 18.8 K, INR is high at 6.8. Creatinine 0.7. Sodium and potassium within normal limits. Plasma lactic acid 2.1 EKG shows normal normal sinus rhythm at 95, with inferior-posterior infarct, age undetermined. Chest x-ray shows new diffuse interstitial opacity In the emergency room patient was started on Zosyn and levofloxacin 07/18/18 Patient was lying in bed, still tachypneic and dyspneic. Patient is more awake today and he has good eye contact however he still confused and mumbles, compared to yesterday when he was moaning all the time. CT of the brain came back negative. Patient has abnormal chest x-ray yesterday showing diffuse interstitial opacities suspicious for pneumonia. Patient was started on antibiotic Zosyn and Levaquin. His repeat chest x-ray still pending. He is saturating 92-96 on oxygen 2 L/m via nasal cannula. afebrile. Patient has leukocytosis on admission. 07/19/2018 Patient is more awake today, is less respiratory distress. However he still tachypneic. He was seen holding his, and eating his for tear in the morning. Hemodynamic without intact and answer some questions however his total poor historian. However he denies chest pain. He still has some dyspnea. He is still on antibiotics Levaquin and Zosyn. He did not need any pain medication. Speech as well as evaluation: No aspiration. Although the family were concerned about hospice care as per staff, however patient showing improvement. We will consider it as an option if patient not improve or keep to deteriorate. WBC stable at 11.2. Hemoglobin 11.1. Patient got 1 dose of vitamin K 2.5 mg yesterday for INR trended up from 6.8 to 8.6, his INR today is 1.5 , so we are going to give him Coumadin pharmacy to dose and bridging with Lovenox. I have called the pharmacy for dosing Objective - Vital Signs Vital signs: Vital Signs Temp 97.9 F 07/19/18 08:02 Pulse 78 07/19/18 11:21 Resp 20 07/19/18 08:02 BP 134/60 07/19/18 08:02 Pulse Ox 94 L 07/19/18 08:02 Intake & Output 07/18/18 07/19/18 07/19/18 18:59 06:59 18:59 Intake Total 400 Balance 400 Weight 79.379 kg 79.379 kg Intake: Oral 400 Other: Voiding Method Incontinent Diaper Diaper Incontinent # Voids 1 1 - Exam -GENERAL: The patient is more awake today and looks at me however he still confused , patient in [id number] respiratory distress. Well developed, well nourished. HEENT: Pupils are round and equally reacting to light. EOMI. No scleral icterus. No conjunctival pallor. Normocephalic, atraumatic. No pharyngeal erythema. No thyromegaly. CARDIOVASCULAR: S1 and S2 present. No murmurs, rubs, or gallops. -PULMONARY: Chest is clear to auscultation, no wheezing . Bilateral inspiratory crackles. ABDOMEN: Soft, nontender, nondistended, normoactive bowel sounds. No palpable organomegaly. MUSCULOSKELETAL: No joint swelling or deformity. EXTREMITIES: No cyanosis, clubbing, or pedal edema. NEUROLOGICAL: Gross neurological examination did not reveal any focal deficits. SKIN: No rashes. - Labs CBC & Chem 7: 07/19/18 08:45 07/19/18 08:45 Labs: Abnormal Lab Results - Last 24 Hours (Table) 07/19/18 07/19/18 07/19/18 Range/Units 08:45 08:45 08:45 WBC 11.2 H (3.8-10.6) k/uL RBC 4.22 L (4.30-5.90) m/uL Hgb 11.1 L (13.0-17.5) gm/dL Hct 37.2 L (39.0-53.0) % MCHC 29.9 L (31.0-37.0) g/dL Neutrophils # 9.6 H (1.3-7.7) k/uL Lymphocytes # 0.8 L (1.0-4.8) k/uL PT 14.2 H (9.0-12.0) sec INR 1.5 H (<1.2) Carbon Dioxide 31 H (22-30) mmol/L BUN 23 H (9-20) mg/dL Glucose 140 H (74-99) mg/dL Microbiology - Last 24 Hours (Table) 07/18/18 11:43 Gram Stain - Preliminary Sputum 07/17/18 13:31 Blood Culture - Preliminary Blood No Growth after 24 hours Assessment and Plan Assessment: Healthcare associated pneumonia 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 Labs and medication were reviewed. Continue with the same treatment. Continue symptomatic treatment. Resume [facility] medication. Monitor lytes and vitals. Continue with antibiotics. Call pulmonary consult. Hold Coumadin while INR is above 3 . Continue Coumadin with therapeutic INR goal at 2-3 .Further recommendation is based on the clinical course of the patient CT of the head: Pending DVT prophylaxis: Restart Coumadin GI prophylaxis: Pepcid Prognosis is guarded and poor Patient is DO NOT RESUSCITATE, confirmed with family son and daughter in law at bedside.
--- NOTE | 2018-07-19 16:22 | CDI ---
Last Revision, September 2017 Documentation Clarification Form Date: 07/20/2018 4:03:20 PM From: Donya Wheatley RN, CCDS Admit Date: 07/17/2018 3:19:00 PM Patient Name: Klever Lugo Visit Number: [id number] Discharge Date: ATTENTION: The Clinical Documentation Specialists (CDI) and [facility] Coding Staff appreciate your assistance in clarifying documentation. Please respond to the clarification below the line at the bottom and electronically sign. The CDI & [facility] Coding staff will review the response and follow-up if needed. Please note: Queries are made part of the Legal Health Record. If you have any questions, please contact the author of this message via ITS. Nico Keen MD Sepsis is documentation in the Emergency Department clinical impression. History/Risk Factors: CAD, Cancer, Hypertension, CVA, TIA, Pulmonary Embolus, Heart failure, Pneumonia Clinical Indicators: The patient is from [facility] with altered mental status, and his difficulty breathing. He is in mild distress. He has been diagnosed with pneumonia. Vital Signs: 123/55 96 22 98.5 92 % 2/L NC WBC/Left Shift 18.8, Neutrophils 16.1, Lactic acid 2.1 Chest x-ray: atypical pneumonias, atypical infections or interstitial pneumonitis Blood cultures: Pending Sputum culture: Pending Treatment: Duoneb's Levaquin IV Zosyn IV Monitor Labs Pneumonia protocol In your professional opinion, please clarify if these findings signify one of the following conditions, whether the condition is POA, and cause, if known: Condition Sepsis ruled out Sepsis ruled in (due to) Other, please specify Unable to determine Present on Admission: Yes No Identify the (suspected) organism SIRS Criteria..2 or more of the following may indicate SIRS: Temperature < 96.8F (36C) or > 101.0F (38.3C) Heart Rate > 90 bpm Respiratory Rate > 20 breaths/min or PaCO2 < 32 mmHg White Blood Cell Count > 12,000 or < 4,000 cells/mm3 or > 10% bands Lactate >2.0 mmol/L (>4.0 is equivalent to septic shock) Please continue to document in your progress notes and discharge summary in order to capture severity of illness and risk of mortality. Include clinical findings that support your diagnosis. pt has SIRS on admission with leukocytosis and tachypnea (RR was more than 20 on admission) and HR more than 90. and CXR: Right lower lobe pna, which is the source of infection,. pt has sepsis on admission secondary to pna MTDD
[2018-07-19] MEDS ORDERED: WARFARIN 2.5 MG TAB PO ONE (18:00)
[2018-07-19] MEDS: LEVOFLOXACIN 750MG-D5W PMX 750 MG in DEXTROSE/WATER 1 150ML.BAG IVPB SCH (20:44)
[2018-07-19] MEDS: ENOXAPARIN 80 MG/0.8 ML SYRINGE SQ SCH (20:45)
[2018-07-20] MEDS: PIPERACILLIN-TAZOBACTAM 3.375 GM in DEXTROSE/WATER 1 50ML.BAG IVPB SCH ×2 (00:08→08:13)
[2018-07-20 08:02] LABS: Basophils % (A) 0 %; Eosinophils # (A) 0.2 k/uL (0-0.7); Eosinophils % (A) 2 %; HCT 37.3 % (39.0-53.0); HGB 11.3 gm/dL (13.0-17.5); Hypochromasia Moderate; INR 1.4 (<1.2); Lymphocytes # (A) 0.9 k/uL (1.0-4.8); Lymphocytes % (A) 7 %; MCH 26.6 pg (25.0-35.0); MCHC 30.3 g/dL (31.0-37.0); MCV 87.8 fL (80.0-100.0); Mean Platelet Volume 7.2; Monocytes # (A) 0.4 k/uL (0-1.0); Monocytes % (A) 4 %; Neutrophils % (A) 86 %; Platelet Count 324 k/uL (150-450); RBC 4.25 m/uL (4.30-5.90); WBC 11.7 k/uL (3.8-10.6)
[2018-07-20] MEDS: ENOXAPARIN 80 MG/0.8 ML SYRINGE SQ SCH ×2 (08:13→19:53)
[2018-07-20 08:41] LABS: Anion Gap 8 mmol/L; Blood Urea Nitrogen 21 mg/dL (9-20); Calcium 8.9 mg/dL (8.4-10.2); Carbon Dioxide 34 mmol/L (22-30); Chloride 103 mmol/L (98-107); Glucose 109 mg/dL (74-99); Potassium 3.5 mmol/L (3.5-5.1); Sodium 145 mmol/L (137-145)
[2018-07-20] MEDS: IPRATROPIUM-ALBUTEROL 3 ML NEB INHALATION SCH ×4 (09:13→19:52)
--- NOTE | 2018-07-20 11:55 | P.PN ---
Subjective Progress Note Date: 07/20/18 Principal diagnosis: Shortness of breath, mental status changes, multifactorial, in part related to mild interstitial edema, interstitial fibrosis, possible interstitial pneumonia. Primary consult dated 07/18/2018 This is an 87-year-old male who was admitted with a diagnosis of possible pneumonia. He is not a particularly good historian. The patient was not able to give any history. He is not sure why he is in the hospital. Apparently according to EMS and the nurses, at the intermediate, he apparently had to mental status changes and some difficulty breathing with audible abnormal breath sounds. A chest x-ray reveals some interstitial changes consistent with either interstitial fibrosis and/or interstitial edema and/or interstitial pneumonia. For that reason the patient was admitted. He is a DO NOT RESUSCITATE. She resides at [facility]. According to the medical record , the patient has a history of CAD chest pain heart failure CVA hyperlipidemia hypertension myocardial infarction pulmonary embolism prostate cancer with previous prostatectomy colon cancer with previous colon cancer surgery hypothyroidism and neuropathy. Surgical histories include appendectomy bypass grafting heart catheterization with stent hernia repair joint replacement prostatectomy tonsillectomy IVC filter placement, bilateral cataract surgery, left hip arthroplasty back surgery and colectomy. He apparently is a former smoker. On 07/19/2018 patient seen in follow-up on medical surgical floor. He is breathing comfortably today, he denies any shortness of breath. Yesterday in the afternoon patient was having increased difficulty breathing, his cough is extremely weak, at times he has difficulty clearing his secretions. He is a high aspiration risk, he had a swallow evaluation and apparently he passed his test, however in view of his weak cough, patient's name is an aspiration risk, and was left on a modified diet with thickened liquids. He had ordered a BiPAP on as-needed basis yesterday, however patient never did needed. Also ask on 3 L per nasal cannula is 94%, vitals are stable, he patient is afebrile, lung sounds are positive for some scattered crackles. No wheezes. Today's labs have been reviewed, WBCs 11.2, hemoglobin is 11.1, INR is down to 1.5, patient was given some vitamin K yesterday for nerve VIII 0.6, no signs of any bleeding. Electrolytes are within normal limits with exception of CO2 which is a 31, BUN is 23 and creatinine 0.87. Sputum culture has been sent, and is pending at this time, blood cultures have been negative. Patient remains on antibiotic coverage in the form of Levaquin and Zosyn. He remains on nebulized bronchodilators. He seems to be calm and comfortable right now. He fed himself breakfast this morning. On 07/20/2018 patient seen in follow-up on medical surgical floor. Sitting up in the chair, no acute distress, currently down to 2 L per nasal cannula, his pulse ox of 96%, he is afebrile, respirations are even and nonlabored. Today's labs have been reviewed, WBC is 11.7, hemoglobin is 11.3, INR is 1.4, 2 lites are unremarkable with exception of CO2 which is a 34, B1 is 21, creatinine is 0.82. Sputum culture showed normal respiratory rose, blood culture remains negative since admission. He is on empiric antibiotics in the form of Levaquin , which will be switched to oral Levaquin starting today. No acute issues overnight, patient did not require BiPAP support. Objective - Vital Signs Vital signs: Vital Signs Temp 97.1 F L 07/20/18 05:53 Pulse 84 07/20/18 08:10 Resp 20 07/20/18 05:53 BP 180/80 07/20/18 08:10 Pulse Ox 96 07/20/18 08:10 Intake & Output 07/19/18 07/20/18 07/20/18 18:59 06:59 18:59 Intake Total 200 Balance 200 Intake: Intake, IV Titration 200 Amount Levofloxacin 750Mg-D5w 150 Pmx 750 mg In Dextrose/ Water 1 150ml.bag @ 100 mls/hr IVPB Q24H [facility] Rx#: [id number] Piperacillin-Tazobactam 3 50 .375 gm In Dextrose/Water 1 50ml.bag @ 12.5 mls/hr IVPB Q8HR [facility] Rx#: [id number] Other: Voiding Method Diaper Incontinent # Voids 3 4 - Exam No acute distress, confused, poor historian, nasal O2 in place. HEENT examination is grossly unremarkable. Mucous membranes are moist. No oral lesions. Neck supple. Full range of motion. No adenopathy thyromegaly or neck vein distention. Cardiovascular examination reveals regular rhythm rate. S1-S2 normal. No S3 or S4. No discernible murmur noted. Heart sounds are distant. Lungs reveal bilateral crackles. Breath sounds are coarse. There are some expiratory rhonchi. No wheezes. Breath sounds equal bilaterally. Abdomen soft and bowel sounds are heard. No masses or tenderness. Extremities are intact. No cyanosis clubbing or edema. Skin is without rash or lesion. Neurologic examination is brief but nonfocal. - Labs CBC & Chem 7: 07/20/18 07:11 07/20/18 07:11 Labs: Abnormal Lab Results - Last 24 Hours (Table) 07/20/18 07/20/18 07/20/18 Range/Units 07:11 07:11 07:11 WBC 11.7 H (3.8-10.6) k/uL RBC 4.25 L (4.30-5.90) m/uL Hgb 11.3 L (13.0-17.5) gm/dL Hct 37.3 L (39.0-53.0) % MCHC 30.3 L (31.0-37.0) g/dL Neutrophils # 10.0 H (1.3-7.7) k/uL Lymphocytes # 0.9 L (1.0-4.8) k/uL PT 13.0 H (9.0-12.0) sec INR 1.4 H (<1.2) Carbon Dioxide 34 H (22-30) mmol/L BUN 21 H (9-20) mg/dL Glucose 109 H (74-99) mg/dL Microbiology - Last 24 Hours (Table) 07/18/18 11:43 Gram Stain - Final Sputum Sputum Culture - Final 07/17/18 13:31 Blood Culture - Preliminary Blood No Growth after 48 hours Assessment and Plan Plan: Shortness of breath, with mental status changes, which are likely multifactorial in part related to mild interstitial edema, interstitial fibrosis , and possible interstitial pneumonia. Since the patient resides at a intermediate, healthcare acquired pneumonia must be a consideration. History of CAD with previous bypass grafting History of CVA History of bilateral recurrent pulmonary emboli, status post filter placement History of hypertension History of hyperlipidemia History of CHF Prostate cancer, status post prostatectomy Previous colectomy for colon cancer History of hypothyroidism History of neuropathy Multiple other medical problems and comorbidities Plan: Switch the IV Levaquin to oral Levaquin. The nebulized bronchodilators, may use BiPAP support as needed. Patient is improving, we will consult hospice to come and speak with the patient and the family regarding initiation of palliative/hospice care. As previously mentioned family was interested on additional information about hospice care. This is certainly reasonable given the patient's advanced age, multiple comorbidities, poor baseline functional status, and recurrent hospitalizations. Otherwise patient is improving, and could be considered for discharge back to the intermediate today or tomorrow. I performed a history & physical examination of the patient and discussed their management with my nurse practitioner, Ayesha Winters. I reviewed the nurse practitioner's note and agree with the documented findings and plan of care. Lung sounds are bibasilar crackles. The findings and the impression was discussed with the patient. I attest to the documentation by the nurse practitioner. Time with Patient: Less than 30
--- NOTE | 2018-07-20 16:30 | CDI ---
Last Revision, September 2017 Documentation Clarification Form Date: 07/20/2018 4:13:58 PM From: Donya Wheatley RN, CCDS Admit Date: 07/17/2018 3:19:00 PM Patient Name: Klever Lugo Visit Number: [id number] Discharge Date: ATTENTION: The Clinical Documentation Specialists (CDI) and [facility] Coding Staff appreciate your assistance in clarifying documentation. Please respond to the clarification below the line at the bottom and electronically sign. The CDI & [facility] Coding staff will review the response and follow-up if needed. Please note: Queries are made part of the Legal Health Record. If you have any questions, please contact the author of this message via ITS. Nico Keen MD Altered mental status was documented in your H/P, the Emergency Department, and Pulmonary consult. Patient history/risk factors: Pneumonia, Coronary artery disease, CVA, TIA, Colon cancer, Hypertension, Congestive heart failure. Clinical Indicators: Presented from [facility] with altered mental status and difficulty breathing. He has been diagnosed with pneumonia. He is alert and orientated x1 to person only, in mild to moderate respiratory distress. Labs: 18.8, Neutrophols 16.1, Lactic acid 2.1 Chest x-ray: Diffuse increased interstitial opacity, atypical pneumonias, atypical infections, or interstitial pneumonitis. CT Brain: No acute process Treatment: Monitor Labs Neurological assessment per protocol Levaquin IV now PO Ativan IV PRN In your professional opinion, please clarify the etiology of the altered mental status, if known. Metabolic Encephalopathy (specify underlying medical illness) Delirium (specify cause): Dementia (if know, specify Type: and if with/without Behavioral Disturbance) Other condition (please specify) Unable to determine Please continue to document in your progress notes and discharge summary in order to capture severity of illness and risk of mortality. Include clinical findings that support your diagnosis. pt had metabolic encephalopathy secondary to pna, on the top of alzheimer dementia MTDD
[2018-07-20] MEDS ORDERED: WARFARIN 2 MG TAB PO ONE ×2 (18:00→22:45)
[2018-07-20] MEDS ORDERED: LEVOFLOXACIN 750 MG TAB PO SCH (21:00)
--- NOTE | 2018-07-20 21:03 | P.PN ---
Subjective This is a pleasant 87 years old male with past medical history of coronary artery disease, congestive heart failure, CVA/TIA, hyperlipidemia, hypertension , bilateral pulmonary embolism on Coumadin, prostate cancer status post surgery , colon cancer status post surgery, skin cancer, hypothyroidism. He was [facility] from her [facility] living for altered mental status and worsening dyspnea progressively associated with cough. Patient is poor historian. Information is a provided from the son and fprcxwrz-ey-hni at bedside. As per family patient has been feeling and well for the last couple weeks, get worse over the last 34 days. When he gets more weaker and confused, associated with dyspnea and desaturating to 85 while off oxygen. He has some mild cuff. With no phlegm. There is no signs symptoms of bleeding from anywhere on both his INR 6.8. On admission On admission patient has been febrile, respiratory rate currently the 25, pressure 114/60, oxygen saturation 95% on 2 L nasal cannula of oxygen In the emergency room her WBC was 18.8 K, INR is high at 6.8. Creatinine 0.7. Sodium and potassium within normal limits. Plasma lactic acid 2.1 EKG shows normal normal sinus rhythm at 95, with inferior-posterior infarct, age undetermined. Chest x-ray shows new diffuse interstitial opacity In the emergency room patient was started on Zosyn and levofloxacin 07/18/18 Patient was lying in bed, still tachypneic and dyspneic. Patient is more awake today and he has good eye contact however he still confused and mumbles, compared to yesterday when he was moaning all the time. CT of the brain came back negative. Patient has abnormal chest x-ray yesterday showing diffuse interstitial opacities suspicious for pneumonia. Patient was started on antibiotic Zosyn and Levaquin. His repeat chest x-ray still pending. He is saturating 92-96 on oxygen 2 L/m via nasal cannula. afebrile. Patient has leukocytosis on admission. 07/19/2018 Patient is more awake today, is less respiratory distress. However he still tachypneic. He was seen holding his, and eating his for tear in the morning. Hemodynamic without intact and answer some questions however his total poor historian. However he denies chest pain. He still has some dyspnea. He is still on antibiotics Levaquin and Zosyn. He did not need any pain medication. Speech as well as evaluation: No aspiration. Although the family were concerned about hospice care as per staff, however patient showing improvement. We will consider it as an option if patient not improve or keep to deteriorate. WBC stable at 11.2. Hemoglobin 11.1. Patient got 1 dose of vitamin K 2.5 mg yesterday for INR trended up from 6.8 to 8.6, his INR today is 1.5 , so we are going to give him Coumadin pharmacy to dose and bridging with Lovenox. I have called the pharmacy for dosing 07/20/2018 pt is more awake today , however he is still poor historian , he is still tahcypneic, WBC 11.7K. pt INR is 1.4, he got 6.5 mg of Coumadin yesterday, which is his usual dose , and INR came down a little bit, pharmacy dosed his coumadin at 4 mg today. we are going to recheck his INR , pt is on lovenox bridging . prognosis is poor and family are interested in hospice care. Objective - Vital Signs Vital signs: Vital Signs Temp 96.5 F L 07/20/18 14:25 Pulse 78 07/20/18 20:06 Resp 20 07/20/18 14:25 BP 121/59 07/20/18 14:25 Pulse Ox 96 07/20/18 14:25 Intake & Output 07/20/18 07/20/18 07/21/18 06:59 18:59 06:59 Intake Total 200 Balance 200 Intake: Intake, IV Titration 200 Amount Levofloxacin 750Mg-D5w 150 Pmx 750 mg In Dextrose/ Water 1 150ml.bag @ 100 mls/hr IVPB Q24H [facility] Rx#: [id number] Piperacillin-Tazobactam 3 50 .375 gm In Dextrose/Water 1 50ml.bag @ 12.5 mls/hr IVPB Q8HR [facility] Rx#: [id number] Other: # Voids 4 2 # Bowel Movements 1 - Exam -GENERAL: The patient is more awake today and looks at me however he still confused , patient in [id number] respiratory distress. Well developed, well nourished. HEENT: Pupils are round and equally reacting to light. EOMI. No scleral icterus. No conjunctival pallor. Normocephalic, atraumatic. No pharyngeal erythema. No thyromegaly. CARDIOVASCULAR: S1 and S2 present. No murmurs, rubs, or gallops. -PULMONARY: Chest is clear to auscultation, no wheezing . Bilateral inspiratory crackles. ABDOMEN: Soft, nontender, nondistended, normoactive bowel sounds. No palpable organomegaly. MUSCULOSKELETAL: No joint swelling or deformity. EXTREMITIES: No cyanosis, clubbing, or pedal edema. NEUROLOGICAL: Gross neurological examination did not reveal any focal deficits. SKIN: No rashes. - Labs CBC & Chem 7: 07/20/18 07:11 07/20/18 07:11 Labs: Abnormal Lab Results - Last 24 Hours (Table) 07/20/18 07/20/18 07/20/18 Range/Units 07:11 07:11 07:11 WBC 11.7 H (3.8-10.6) k/uL RBC 4.25 L (4.30-5.90) m/uL Hgb 11.3 L (13.0-17.5) gm/dL Hct 37.3 L (39.0-53.0) % MCHC 30.3 L (31.0-37.0) g/dL Neutrophils # 10.0 H (1.3-7.7) k/uL Lymphocytes # 0.9 L (1.0-4.8) k/uL PT 13.0 H (9.0-12.0) sec INR 1.4 H (<1.2) Carbon Dioxide 34 H (22-30) mmol/L BUN 21 H (9-20) mg/dL Glucose 109 H (74-99) mg/dL Microbiology - Last 24 Hours (Table) 07/17/18 13:31 Blood Culture - Preliminary Blood No Growth after 72 hours 07/18/18 11:43 Gram Stain - Final Sputum Sputum Culture - Final Assessment and Plan Assessment: Healthcare associated pneumonia 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 Labs and medication were reviewed. Continue with the same treatment. Continue symptomatic treatment. Resume senior living medication. Monitor lytes and vitals. Continue with antibiotics. Call pulmonary consult. Hold Coumadin while INR is above 3 . Continue Coumadin with therapeutic INR goal at 2-3 .Further recommendation is based on the clinical course of the patient CT of the head: Pending DVT prophylaxis: Restart Coumadin GI prophylaxis: Pepcid Prognosis is guarded and poor Patient is DO NOT RESUSCITATE, confirmed with family son and daughter in law at bedside.
[2018-07-20 21:23] LABS: INR 1.5 (<1.2); Prothrombin Time 13.7 sec (9.0-12.0)
[2018-07-21 06:38] VITALS: BP 168/79; RESP 14; TEMP 97.5
--- NOTE | 2018-07-21 09:08 | P.PN ---
Subjective Progress Note Date: 07/21/18 Principal diagnosis: Shortness of breath, mental status changes, multifactorial, in part related to mild interstitial edema, interstitial fibrosis, possible interstitial pneumonia. Primary consult dated 07/18/2018 This is an 87-year-old male who was admitted with a diagnosis of possible pneumonia. He is not a particularly good historian. The patient was not able to give any history. He is not sure why he is in the hospital. Apparently according to EMS and the nurses, at the [facility], he apparently had to mental status changes and some difficulty breathing with audible abnormal breath sounds. A chest x-ray reveals some interstitial changes consistent with either interstitial fibrosis and/or interstitial edema and/or interstitial pneumonia. For that reason the patient was admitted. He is a DO NOT RESUSCITATE. She resides at [facility]. According to the medical record , the patient has a history of CAD chest pain heart failure CVA hyperlipidemia hypertension myocardial infarction pulmonary embolism prostate cancer with previous prostatectomy colon cancer with previous colon cancer surgery hypothyroidism and neuropathy. Surgical histories include appendectomy bypass grafting heart catheterization with stent hernia repair joint replacement prostatectomy tonsillectomy IVC filter placement, bilateral cataract surgery, left hip arthroplasty back surgery and colectomy. He apparently is a former smoker. On 07/19/2018 patient seen in follow-up on medical surgical floor. He is breathing comfortably today, he denies any shortness of breath. Yesterday in the afternoon patient was having increased difficulty breathing, his cough is extremely weak, at times he has difficulty clearing his secretions. He is a high aspiration risk, he had a swallow evaluation and apparently he passed his test, however in view of his weak cough, patient's name is an aspiration risk, and was left on a modified diet with thickened liquids. He had ordered a BiPAP on as-needed basis yesterday, however patient never did needed. Also ask on 3 L per nasal cannula is 94%, vitals are stable, he patient is afebrile, lung sounds are positive for some scattered crackles. No wheezes. Today's labs have been reviewed, WBCs 11.2, hemoglobin is 11.1, INR is down to 1.5, patient was given some vitamin K yesterday for nerve VIII 0.6, no signs of any bleeding. Electrolytes are within normal limits with exception of CO2 which is a 31, BUN is 23 and creatinine 0.87. Sputum culture has been sent, and is pending at this time, blood cultures have been negative. Patient remains on antibiotic coverage in the form of Levaquin and Zosyn. He remains on nebulized bronchodilators. He seems to be calm and comfortable right now. He fed himself breakfast this morning. On 07/20/2018 patient seen in follow-up on medical surgical floor. Sitting up in the chair, no acute distress, currently down to 2 L per nasal cannula, his pulse ox of 96%, he is afebrile, respirations are even and nonlabored. Today's labs have been reviewed, WBC is 11.7, hemoglobin is 11.3, INR is 1.4, 2 lites are unremarkable with exception of CO2 which is a 34, B1 is 21, creatinine is 0.82. Sputum culture showed normal respiratory rose, blood culture remains negative since admission. He is on empiric antibiotics in the form of Levaquin , which will be switched to oral Levaquin starting today. No acute issues overnight, patient did not require BiPAP support. On 07/21/2018 patient seen in follow-up on medical surgical floor. He is resting comfortably in bed, he is in no acute distress, denies any worsening shortness of breath, or chest pain. No other complaints. currently on 2 L per nasal cannula his pulse ox is 97%, he is afebrile, hemodynamically stable. no new labs today, further than PT/INR, his INR is up to 1.5, patient's Coumadin has been resumed. lung sounds are positive for coarse crackles at the bases. no new chest x-rays today. did not require BiPAP support last night. He is calm and comfortable, he is on nebulized bronchodilators, and Levaquin. he is improving, and from pulmonary perspective he can be transferred [facility] to the [facility] today if cleared by primary service Objective - Vital Signs Vital signs: Vital Signs Temp 97.5 F L 07/21/18 06:38 Pulse 93 07/21/18 06:38 Resp 14 07/21/18 06:38 BP 168/79 07/21/18 06:38 Pulse Ox 97 07/21/18 06:38 Intake & Output 07/20/18 07/21/18 07/21/18 18:59 06:59 18:59 Other: Voiding Method Urinal Diaper Incontinent # Voids 2 1 # Bowel Movements 1 1 - Exam No acute distress, confused, poor historian, nasal O2 in place. HEENT examination is grossly unremarkable. Mucous membranes are moist. No oral lesions. Neck supple. Full range of motion. No adenopathy thyromegaly or neck vein distention. Cardiovascular examination reveals regular rhythm rate. S1-S2 normal. No S3 or S4. No discernible murmur noted. Heart sounds are distant. Lungs reveal bilateral crackles. Breath sounds are coarse. coarse crackles. No wheezes. Breath sounds equal bilaterally. Abdomen soft and bowel sounds are heard. No masses or tenderness. Extremities are intact. No cyanosis clubbing or edema. Skin is without rash or lesion. Neurologic examination is brief but nonfocal. - Labs CBC & Chem 7: 07/20/18 07:11 07/20/18 07:11 Labs: Abnormal Lab Results - Last 24 Hours (Table) 07/20/18 07/20/18 Range/Units 07:11 20:59 PT 13.0 H 13.7 H (9.0-12.0) sec INR 1.4 H 1.5 H (<1.2) Microbiology - Last 24 Hours (Table) 07/17/18 13:31 Blood Culture - Preliminary Blood No Growth after 72 hours 07/18/18 11:43 Gram Stain - Final Sputum Sputum Culture - Final Assessment and Plan Plan: Shortness of breath, with mental status changes, which are likely multifactorial in part related to mild interstitial edema, interstitial fibrosis , and possible interstitial pneumonia. Since the [facility] resides at a [facility], healthcare acquired pneumonia must be a consideration. History of CAD with previous bypass grafting History of CVA History of bilateral recurrent pulmonary emboli, status post filter placement History of hypertension History of hyperlipidemia History of CHF Prostate cancer, status post prostatectomy Previous colectomy for colon cancer History of hypothyroidism History of neuropathy Multiple other medical problems and comorbidities Plan: Continue oral antibiotics, nebulized bronchodilators, increase activity as tolerated. Patient is afebrile, vital signs are stable. No acute events overnight, did not require BiPAP support last night, he is improving. We consulted [facility] yesterday, not clear if they came in and spoke to the patient and the family. From pulmonary perspective patient is doing well, improving, and could be considered for discharge [facility] to the [facility] today. I performed a history & physical examination of the patient and discussed their management with my nurse practitioner, Ayesha Winters. I reviewed the nurse practitioner's note and agree with the documented findings and plan of care. Lung sounds are bibasilar crackles. The findings and the impression was discussed with the patient. I attest to the documentation by the nurse practitioner. Time with Patient: Less than 30
[2018-07-21 09:28] LABS: Anion Gap 8 mmol/L; Blood Urea Nitrogen 21 mg/dL (9-20); Calcium 8.9 mg/dL (8.4-10.2); Carbon Dioxide 28 mmol/L (22-30); Chloride 108 mmol/L (98-107); Glucose 111 mg/dL (74-99); Potassium 3.6 mmol/L (3.5-5.1); Sodium 144 mmol/L (137-145)
[2018-07-21 09:31] LABS: INR 1.4 (<1.2); Prothrombin Time 13.5 sec (9.0-12.0)
[2018-07-21 09:45] LABS: Basophils % (A) 0 %; Eosinophils # (A) 0.2 k/uL (0-0.7); Eosinophils % (A) 2 %; HCT 35.8 % (39.0-53.0); HGB 11.2 gm/dL (13.0-17.5); Hypochromasia Marked; Lymphocytes # (A) 0.8 k/uL (1.0-4.8); Lymphocytes % (A) 10 %; MCH 27.4 pg (25.0-35.0); MCHC 31.1 g/dL (31.0-37.0); MCV 88.1 fL (80.0-100.0); Mean Platelet Volume 7.3; Monocytes # (A) 0.4 k/uL (0-1.0); Monocytes % (A) 5 %; Neutrophils # (A) 7.3 k/uL (1.3-7.7); Neutrophils % (A) 82 %; Platelet Count 328 k/uL (150-450); RBC 4.07 m/uL (4.30-5.90); RDW 14.9 % (11.5-15.5); WBC 8.8 k/uL (3.8-10.6)
[2018-07-21] MEDS: IPRATROPIUM-ALBUTEROL 3 ML NEB INHALATION SCH ×2 (10:25→13:32)
[2018-07-21] MEDS: ENOXAPARIN 80 MG/0.8 ML SYRINGE SQ SCH (10:30)
[2018-07-21 13:48] VITALS: PULSE 81
[2018-07-21] MEDS ORDERED: WARFARIN 2 MG TAB PO ONE (18:00)
--- NOTE | 2018-07-21 22:31 | P.DS ---
Providers Date of admission: 07/17/18 15:19 Attending physician: Devendra Whitlock Consults: 07/17/18 17:41 Consult Physician Routine Consulting Provider: Jm Best Reason/Comments: pna Do you want consulting provider notified?: Yes Primary care physician: Dwayne [facility] Course: This is a pleasant 87 years old male with past medical history of coronary artery disease, congestive heart failure, CVA/TIA, hyperlipidemia, hypertension , bilateral pulmonary embolism on Coumadin, prostate cancer status post surgery , colon cancer status post surgery, skin cancer, hypothyroidism. [facility] for altered mental status and worsening dyspnea progressively associated with cough. Patient is poor historian. Information is a provided from the son and [id number] at bedside. As per family patient has been feeling and well for the last couple weeks, get worse over the last 34 days. When he gets more weaker and confused, associated with dyspnea and desaturating to 85 while off oxygen. He has some mild cuff. With no phlegm. There is no signs symptoms of bleeding from anywhere on both his INR 6.8. On admission On admission patient has been febrile, respiratory rate currently the 25, pressure 114/60, oxygen saturation 95% on 2 L nasal cannula of oxygen In the emergency room her WBC was 18.8 K, INR is high at 6.8. Creatinine 0.7. Sodium and potassium within normal limits. Plasma lactic acid 2.1 EKG shows normal normal sinus rhythm at 95, with inferior-posterior infarct, age undetermined. Chest x-ray shows new diffuse interstitial opacity In the emergency room patient was started initially on Zosyn and levofloxacin. Pulmonary evaluated the patient and recommended considering the patient for hospice, especially if he deteriorates. Patient showed interval improvement with treatment and become more awake and his dyspnea is improving. This tachypneic on the day of discharge and he has good eye contact and full awake however he still poor historian. Which looks like his baseline. Patient INR was supratherapeutic and admission. Since one-time dose of vitamin K 2.5 by mouth. His INR came down to 1.4-1.5, restarted Coumadin with bridging with Lovenox. -Patient tolerated that well. His INR on the day of discharge was: Patient was cleared by pulmonary team for discharge Patient was found stable and can be discharged back to his [facility] in a Guarded prognosis. And recommended to follow up as an outpatient physical exam Gen.: Patient alert awake and oriented X 0, however pt is calm. NOT IN DISTRESS CVS: s1-s2, RRR, no murmur CHEST:bilateral CTA, no wheezing or crepitation. tachypnea is improving Abdomen: Soft, no tenderness, no distention, positive bowel sounds Extremities: No leg edema or induration NB. staff bed side RN told me she called and gave report to the saff at [facility] including the recommendation about coumadin and INR as above Time spent more than 35 minutes Patient Condition at Discharge: Stable Plan - Discharge Summary Discharge Rx Participant: No New Discharge Prescriptions: New Enoxaparin [Lovenox] 80 mg SQ Q12HR syringe Levofloxacin [Levaquin] 750 mg PO HS #3 tab Continue Citalopram Hydrobromide [CeleXA] 10 mg PO DAILY Metoprolol Tartrate [Lopressor] 25 mg PO BID Acetaminophen [Tylenol] 650 mg PO Q6HR PRN PRN Reason: Pain Levothyroxine Sodium [Synthroid] 50 mcg PO DAILY Isosorbide Mononitrate ER [Imdur] 15 mg PO DAILY dose Ipratropium-Albuterol Nebulize [Duoneb 0.5 mg-3 mg/3 ml Soln] 3 ml INHALATION RT-Q6H PRN PRN Reason: Shortness Of Breath Polymyxin B-Trimeth Sulf Ophth [Polytrim Opthalmic] 1 drops BOTH EYES Q4H Bisacodyl [Dulcolax] 10 mg RECTAL DAILY PRN PRN Reason: Constipation guaiFENesin [Diabetic Tussin Ex] 200 mg PO Q6H PRN PRN Reason: Cough Azithromycin [Zithromax] 250 mg PO DAILY Pravastatin Sodium [Pravachol] 80 mg PO HS Amino Acids/Protein Hydrolys [Pro-Stat Supplement] 30 ml PO DAILY Warfarin Sodium 6 mg PO HS Warfarin [Coumadin] 0.5 mg PO HS Diclofenac Sodium [Voltaren Gel] 2 gram TOPICAL DAILY PRN PRN Reason: Pain Discharge Medication List Citalopram Hydrobromide [CeleXA] 10 mg PO DAILY 03/21/14 [History] Metoprolol Tartrate [Lopressor] 25 mg PO BID 09/29/15 [History] Acetaminophen [Tylenol] 650 mg PO Q6HR PRN 09/30/15 [History] Levothyroxine Sodium [Synthroid] 50 mcg PO DAILY 08/01/17 [History] Isosorbide Mononitrate ER [Imdur] 15 mg PO DAILY dose 08/04/17 [Rx] Amino Acids/Protein Hydrolys [Pro-Stat Supplement] 30 ml PO DAILY 07/17/18 [ History] Azithromycin [Zithromax] 250 mg PO DAILY 07/17/18 [History] Bisacodyl [Dulcolax] 10 mg RECTAL DAILY PRN 07/17/18 [History] Diclofenac Sodium [Voltaren Gel] 2 gram TOPICAL DAILY PRN 07/17/18 [History] Ipratropium-Albuterol Nebulize [Duoneb 0.5 mg-3 mg/3 ml Soln] 3 ml INHALATION RT -Q6H PRN 07/17/18 [History] Polymyxin B-Trimeth Sulf Ophth [Polytrim Opthalmic] 1 drops BOTH EYES Q4H [History] Pravastatin Sodium [Pravachol] 80 mg PO HS 07/17/18 [History] Warfarin Sodium 6 mg PO HS 07/17/18 [History] Warfarin [Coumadin] 0.5 mg PO HS 07/17/18 [History] guaiFENesin [Diabetic Tussin Ex] 200 mg PO Q6H PRN 07/17/18 [History] Enoxaparin [Lovenox] 80 mg SQ Q12HR syringe 07/21/18 [Rx] Levofloxacin [Levaquin] 750 mg PO HS #3 tab 07/21/18 [Rx] Follow up Appointment(s)/Referral(s): Dwayne Hobson MD [Primary Care Provider] - 1-2 days (Once out of [facility] ) Rosangela Orellana DO [REFERRING] - (While at [facility]) [facility], [NON-STAFF] [facility] - 1 Week Patient Instructions/Handouts: Pneumonia (DC) Activity/Diet/Wound Care/Special Instructions: Coumadin diet Up with assist, fall precautions. -Recommendations: Patient on coumadin with Lovenox bridging for subtherapeutic INR. His INR today is 1.4. Please check INR daily. When INR is 2.0 or higher then discontinue Lovenox, and continue Coumadin with the goal INR 2-3 -Monitor for any signs symptoms of bleeding, monitor hemoglobin/hematocrit Discharge Disposition: TRANSFER TO SNF/ECF
== END 2018-07-21 15:06 | DRG 871 ==
LOC: EC 12:47 → 4MS4W 15:19
PROVIDERS: ADMIT Internal Medicine; ATTEND Internal Medicine
DX: A41.9 Sepsis, unspecified organism (principal); G93.41 Metabolic encephalopathy; J18.9 Pneumonia, unspecified organism; E03.9 Hypothyroidism, unspecified; E78.00 Pure hypercholesterolemia, unspecified; E78.5 Hyperlipidemia, unspecified; R79.1 Abnormal coagulation profile; I11.0 Hypertensive heart disease with heart failure; I25.10 Atherosclerotic heart disease of native coronary artery without angina pectoris; I25.2 Old myocardial infarction; G30.9 Alzheimer's disease, unspecified; F02.80 Dementia in other diseases classified elsewhere, unspecified severity, without behavioral disturbance, psychotic disturbance, mood disturbance, and anxiety; I50.9 Heart failure, unspecified; J84.10 Pulmonary fibrosis, unspecified; R09.02 Hypoxemia; Y95 Nosocomial condition; Z66 Do not resuscitate; Z79.01 Long term (current) use of anticoagulants; Z79.02 Long term (current) use of antithrombotics/antiplatelets; Z79.899 Other long term (current) drug therapy; Z85.038 Personal history of other malignant neoplasm of large intestine; Z85.46 Personal history of malignant neoplasm of prostate; Z85.828 Personal history of other malignant neoplasm of skin; Z86.711 Personal history of pulmonary embolism; Z86.73 Personal history of transient ischemic attack (TIA), and cerebral infarction without residual deficits; Z87.01 Personal history of pneumonia (recurrent); Z87.891 Personal history of nicotine dependence; Z90.49 Acquired absence of other specified parts of digestive tract; Z90.79 Acquired absence of other genital organ(s); Z95.1 Presence of aortocoronary bypass graft; Z96.642 Presence of left artificial hip joint; Z98.42 Cataract extraction status, left eye; Z98.41 Cataract extraction status, right eye; Z79.890 Hormone replacement therapy; Z88.0 Allergy status to penicillin
CPT/HCPCS: 36415; 70450; 71046; 74230; 80048; 80053; 81001; 82550; 82553; 83605; 83735; 83880; 84484; 85025; 85610; 85730; 87040; 87070; 87205; 93005; 94640; 94660; 94760; 96365; 96366; 99285

== ENCOUNTER 2019-05-02 11:54 | Emergency (ER) | payer MEDICARE, BC ==
[2019-05-02 12:09] VITALS: TEMP 97.4
[2019-05-02] MEDS ORDERED: ACETAMINOPHEN TAB 500 MG TAB PO STA (12:22)
[2019-05-02] MEDS ORDERED: SODIUM CHLORIDE 0.9% 1,000 ML IV SCH (12:30)
[2019-05-02 12:34] LABS: Basophils % (A) 0 %; Eosinophils # (A) 0.3 k/uL (0-0.7); Eosinophils % (A) 2 %; HCT 38.6 % (39.0-53.0); HGB 12.1 gm/dL (13.0-17.5); Hypochromasia Slight; Lymphocytes % (A) 16 %; MCH 26.6 pg (25.0-35.0); MCHC 31.3 g/dL (31.0-37.0); MCV 84.9 fL (80.0-100.0); Mean Platelet Volume 7.7; Monocytes # (A) 0.5 k/uL (0-1.0); Monocytes % (A) 4 %; Neutrophils # (A) 9.9 k/uL (1.3-7.7); Neutrophils % (A) 77 %; Platelet Count 253 k/uL (150-450); RBC 4.55 m/uL (4.30-5.90); RDW 14.2 % (11.5-15.5); WBC 12.8 k/uL (3.8-10.6)
--- NOTE | 2019-05-02 12:37 | ED ---
General Adult HPI - General Chief complaint: Fall Stated complaint: FALL, BACK AND HEAD PAIN Time Seen by Provider: 05/02/19 12:10 Source: patient, EMS, RN notes reviewed, old records reviewed Mode of arrival: EMS Limitations: no limitations - History of Present Illness Initial comments: Chief complaint history of present illness an 88-year-old male who lives at [facility]. He reportedly was in a wheelchair when from known reason he fell backwards. Bumped his head. No reported loss of consciousness. The patient complains discomfort to upper thoracic spine. He is aware of which hospital he is at. Denies nausea vomiting. EMS reports he had complained of some chest pain but their opinion was he was complaining of back pain he did receive subli ngual nitro as well as 50 mg of fentanyl. In emergency room he received Tylenol. He denies any chest pain now denies having had chest pain earlier. The patient's past history includes bypass surgery and pulmonary emboli for which she is on Xarelto. The patient is wheelchair bound. - Related Data Home Medications Medication Instructions Recorded Confirmed Citalopram Hydrobromide [CeleXA] 5 mg PO DAILY 03/21/14 05/02/19 Metoprolol Tartrate [Lopressor] 25 mg PO BID 09/29/15 05/02/19 Acetaminophen [Tylenol] 650 mg PO Q8HR PRN 09/30/15 05/02/19 Levothyroxine Sodium [Synthroid] 50 mcg PO DAILY 08/01/17 05/02/19 Amino Acids/Protein Hydrolys 30 ml PO DAILY 07/17/18 05/02/19 [Pro-Stat Supplement] Bisacodyl [Dulcolax] 10 mg RECTAL DAILY PRN 07/17/18 05/02/19 Diclofenac Sodium [Voltaren Gel] 2 gram TOPICAL HS 07/17/18 05/02/19 Ipratropium-Albuterol Nebulize 3 ml INHALATION RT-Q6H PRN 07/17/18 05/02/19 [Duoneb 0.5 mg-3 mg/3 ml Soln] Pravastatin Sodium [Pravachol] 80 mg PO HS 07/17/18 05/02/19 guaiFENesin [Diabetic Tussin Ex] 200 mg PO Q6H PRN 07/17/18 05/02/19 Artificial Tears-Hypromellose 2 drops BOTH EYES TID 05/02/19 05/02/19 [Artificial Tear Drops] Isosorbide Mononitrate ER [Imdur] 15 mg PO DAILY 05/02/19 05/02/19 Ketoconazole 2% Cream [Nizoral 2%] 1 applic TOPICAL BID@0700,1600 05/02/19 05/02/19 Magnesium Hydroxide [Milk of 2,400 mg PO DAILY PRN 05/02/19 05/02/19 Magnesia] Nitroglycerin Sl Tabs [Nitrostat] 0.4 mg SUBLINGUAL Q5M PRN 05/02/19 05/02/19 Rivaroxaban [Xarelto] 20 mg PO HS 05/02/19 05/02/19 Previous Rx's Medication Instructions Recorded Acetaminophen [Tylenol] 500 mg PO Q6H PRN #20 tab 05/02/19 Allergies Allergy/AdvReac Type Severity Reaction Status Date / Time Penicillins Allergy Rash/Hives Verified 05/02/19 12:11 Review of Systems ROS Statement: Those systems with pertinent positive or pertinent negative responses have been documented in the HPI. Review of systems. The patient complains discomfort to his upper thoracic spine. Denies any chest pain at this time. Alertness to who he is and where he is at. States he did fall backwards in his wheelchair does not know how. Other past medical problems significant for hyperlipidemia, coronary artery disease, cancer of the prostate and colon which she has forgotten about. Also previous [place] and PE as noted above. He's had surgery on both colon and prostate. 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 The chart reports ALLERGIES to penicillin his surgeries include tonsils, adenoids, CABG, heart catheterization with a stent, hernia repair, joint replacement prostate surgery. 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 Former smoker, denies alcohol use drugs this time. Family history unknown. All systems reviewed ROS Other: All systems not noted in ROS Statement are negative. Past Medical History Past Medical History: Coronary Artery Disease (CAD), Cancer, Chest Pain / Angina, Heart Failure, CVA/TIA, Hyperlipidemia, Hypertension, Myocardial Infarction ([place]), Pulmonary Embolus ([place]) Additional Past Medical History / Comment(s): Prostate cancer with surgery, colon cancer with surgery,skin ca, bilateral recurrent pulmonary embolisms, CVA per brain cat scan, hypothyroid, R foot neuropathy after back surgery,past falls, very forgetful. Last Myocardial Infarction Date:: 2008 History of Any Multi-Drug Resistant Organisms: None Reported Past Surgical History: Adenoidectomy, Appendectomy, Coronary Bypass/CABG, Heart Catheterization With Stent, Hernia Repair, Joint Replacement, Prostate Surgery, Tonsillectomy Additional Past Surgical History / Comment(s): Inferior vena cava filter placement, bilateral cataracts removed, prostatectomy, total L hip arthroplasty, back surgery, bowel resection d/t cancer, colonoscopy.skin ca face Past Anesthesia/Blood Transfusion Reactions: No Reported Reaction Date of Last Stent Placement:: 2008 Past Psychological History: No Psychological Hx Reported Smoking Status: Former smoker Past Alcohol Use History: None Reported Past Drug Use History: None Reported - Past Family History Father Family Medical History: Unable to Obtain Mother History Unknown: Yes Family Medical History: Unable to Obtain General Exam - General Exam Comments Initial Comments: General: The patient is awake, answers questions, is forgetful, this is a chronic issue. He is here because he fell backwards in a wheelchair. He lives in a [facility] type home. He is on Xarelto because of recurrent pulmonary emboli. Vital signs shows temperature 97.4 pulse 80 respiratory rate 16 pulse ox 91% on room air blood pressure 115/69 Eye: Pupils are equal, round and reactive to light, extra-ocular movements are intact; there is normal conjunctiva bilaterally. No signs of icterus. History of cataract surgery. Ears, nose, mouth and throat: There are moist mucous membranes and no oral lesions. Neck: Denies neck pain with palpation. Does complain of discomfort in the upper thoracic spine after the fall. He does have one half centimeter spot of blood on the occiput. Denies headache at this time. Denies any nose or tingling down his arms or legs. Cardiovascular: There is a regular rate and rhythm. No murmur, rub or gallop is appreciated. Respiratory: Lungs are clear to auscultation, respirations are non-labored, breath sounds are equal. No wheezes, stridor, rales, or rhonchi. Gastrointestinal: Soft, non-distended, non-tender abdomen without masses or organomegaly noted. There is no rebound or guarding present. No CVA tenderness. Bowel sounds are unremarkable. No pain with deep palpation, no bruit Back: Patient complains of pain to the upper thoracic spine no bruises noted. Area palpated. X-ray pending. Musculoskeletal: Normal ROM, no tenderness, mild pitting lower extremity edema There is no calf tenderness or swelling. Sensation intact. Pulses equal bilaterally 2+. Neurological: Patient moved upper and lower extremities, he is wheelchair bound. Aware of who he is and where he is at. He forgot why he is here Skin: Skin is warm and dry and no rashes or lesions are noted. Psychiatric: Cooperative, Limitations: no limitations Course Vital Signs 05/02/19 11:55 Temperature 97.4 F L Pulse Rate 80 Respiratory 16 Rate Blood Pressure 115/69 O2 Sat by Pulse 91 L Oximetry EKG Findings - EKG Comments: EKG Findings:: EKG was done reviewed at 1206 showing sinus rhythm with first- degree AV block right bundle branch block no acute ST elevation. This is compared to an EKG done on [id number]. His UT interval was 244 ventricular rate 81, QRS duration 1:[address] QT [address] Farley Medical Decision Making - Medical Decision Making Medical decision making; this is an 88-year-old male who lives in a [facility] type [facility]. Reportedly fell backwards while in a wheelchair. Patient is on Xarelto. There was no apparent loss of consciousness. Patient complains mainly of discomfort in the upper thoracic spine. No bruises noted. While en route EMS administered 50 mg of fentanyl. Emergency room he received 1 g of Tylenol. He also received nitroglycerin by EMS because of a complaint of chest pain. EMS felt he was actually complaining of discomfort to his upper back area. While in emergency room he denied having chest pain. Labs show white count 12.8 hemoglobin 12 hematocrit 38 with an INR 1.2. Potassium 4.5. BUN 24 creatinine 0.96 with a GFR of 70. Glucose 110. CT of the brain and cervical spine were done and reviewed. Findings include head; there is no evidence or acute intracranial hemorrhage, acute ischemic changes, mass, mass effect, or extra-axial fluid collection. There is no effacement of cerebral sulci or basal subarachnoid sisters. There is no midline shift. Moreno-white matter distinction is preserved. A moderate generalized supratentorial volume loss. Old lacunar infarct left ba geno ganglia and mild prominence to the ventricular system. Moderate periventricular white matter hypodensities. Findings are unchanged from prior. Complete opacification of the left sphenoid sinus unchanged from [id number] orbits and globes are intact. Mastoid air cells are well pneumatized. No calvarial fracture. Cervical spine. No craniocervical junction abdomen abnormality, predental space widening, or prevertebral soft tissue swelling. Degenerative changes at the C1 dense articulation. There is normal cervical lordosis but with preserved alignment. Moderate disc and degenerative changes throughout. Additional scattered facet and uncovertebral joint degenerative change. Results and the variable neural foraminal stenoses, moderate to severe left greater than right C4-C5, moderate on the right at C5-C6, and on the right at C6-C7. No acute fracture or cervical spine. Visualized upper lungs show bronchiectasis and scattered endobronchial plugging. Some pulmonary nodules are present measuring up to 5 mm and can be reassessed nonemergent follow-up CT chest. Sagittal and coronal reformatted images confirmed above findings. As read by Dr. Munoz x-ray of the chest was done AP and lateral view and reviewed by radiologist impression chronic changes with no acute cardiopulmonary process. Entire report was reviewed. As read by Dr. horne X-rays of the thoracic spine were done and reviewed by radiologist his final impression is no acute fracture or malalignment is seen and thoracic spine. Age indeterminate compression deformity of L1 vertebral body. Correlate with point tenderness. This was not present on the remote exam of 2011. As read by examination finds no pain in this specific area. I discussed the patient's x-rays with the patient and family at bedside. The patient will be sent back to [facility]. Suggestion received 1 g of Tylenol alex ry 6 hours for discomfort and ice pack as needed. We did discuss the compression more wedge compression of L1 etiology unknown and no pain on palpation at this time. - Lab Data Result diagrams: 05/02/19 12:05 05/02/19 12:05 Lab Results 05/02/19 05/02/19 05/02/19 Range/Units 12:05 12:05 12:05 WBC 12.8 H (3.8-10.6) k/uL RBC 4.55 (4.30-5.90) m/uL Hgb 12.1 L (13.0-17.5) gm/dL Hct 38.6 L (39.0-53.0) % MCV 84.9 (80.0-100.0) fL MCH 26.6 (25.0-35.0) pg MCHC 31.3 (31.0-37.0) g/dL RDW 14.2 (11.5-15.5) % Plt Count 253 (150-450) k/uL Neutrophils % 77 % Lymphocytes % 16 % Monocytes % 4 % Eosinophils % 2 % Basophils % 0 % Neutrophils # 9.9 H (1.3-7.7) k/uL Lymphocytes # 2.0 (1.0-4.8) k/uL Monocytes # 0.5 (0-1.0) k/uL Eosinophils # 0.3 (0-0.7) k/uL Basophils # 0.0 (0-0.2) k/uL Hypochromasia Slight PT 12.1 H (9.0-12.0) sec INR 1.2 H (<1.2) Sodium 140 (137-145) mmol/L Potassium 4.5 (3.5-5.1) mmol/L Chloride 102 (98-107) mmol/L Carbon Dioxide 30 (22-30) mmol/L Anion Gap 8 mmol/L BUN 24 H (9-20) mg/dL Creatinine 0.96 (0.66-1.25) mg/dL Est GFR (CKD-EPI)AfAm 81 (>60 ml/min/1.73 sqM) Est GFR (CKD-EPI)NonAf 70 (>60 ml/min/1.73 sqM) Glucose 110 H (74-99) mg/dL Calcium 9.0 (8.4-10.2) mg/dL Total Bilirubin 0.4 (0.2-1.3) mg/dL AST 32 (17-59) U/L ALT 25 (21-72) U/L Alkaline Phosphatase 73 (38-126) U/L Total Protein 6.9 (6.3-8.2) g/dL Albumin 3.4 L (3.5-5.0) g/dL Disposition Clinical Impression: Fall, Thoracic spine pain Disposition: HOME SELF-CARE Condition: Stable Additional Instructions: Apply ice to area discomfort. Follow-up family physician. Return emergency room as needed. Suggested Tylenol 500-1000 mg every 6 hours as needed for pain. Watch for mental status changes Prescriptions: Acetaminophen [Tylenol] 500 mg PO Q6H PRN #20 tab PRN Reason: Pain Is patient prescribed a controlled substance at d/c from ED?: No Referrals: Dwayne Hobson MD [Primary Care Provider] - 1-2 days Time of Disposition: 14:15
[2019-05-02 12:39] LABS: INR 1.2 (<1.2); Prothrombin Time 12.1 sec (9.0-12.0)
[2019-05-02 12:42] LABS: Albumin 3.4 g/dL (3.5-5.0); Potassium 4.5 mmol/L (3.5-5.1); Total Bilirubin 0.4 mg/dL (0.2-1.3); Total Protein 6.9 g/dL (6.3-8.2)
--- NOTE | 2019-05-02 13:12 | XR ---
EXAMINATION TYPE: XR chest 2V DATE OF EXAM: 05/02/2019 COMPARISON: 07/18/2018 HISTORY: Chest pain after fall TECHNIQUE: Frontal and lateral views of the chest are obtained. FINDINGS: The patient's chin obscures the lung apices. There is no focal air space opacity, pulmonar y vascular congestion, or pneumothorax seen. Chronic pleural reaction is seen at the costophrenic an gles unchanged from the prior. Chronic interstitial prominence is also unchanged from the prior. Unde rlying COPD and interstitial lung disease is suspected. Post CABG changes of the chest are noted. The cardiac silhouette size is within normal limits. There is diffuse osseous demineralization. Mild mul tilevel degenerative changes of the thoracic spine are seen. IMPRESSION: Chronic changes with no acute cardiopulmonary process.
--- NOTE | 2019-05-02 13:15 | XR ---
EXAMINATION TYPE: XR thoracic spine complete DATE OF EXAM: 05/02/2019 CLINICAL HISTORY: Fall with mid back pain. TECHNIQUE: Frontal, lateral, and swimmer's view of thoracic spine are obtained. COMPARISON: CT dated 01/27/2012 FINDINGS: Thoracic spine show satisfactory alignment without evidence of acute fracture or dislocatio n. Vertebral body heights and disc space heights are preserved. Visualized ribs are unremarkable. There is compression deformity of L1 that appears new from the prior of 01/27/2012 vertebral body heig ht loss is approximately 60%. Moderate multilevel degenerative disc disease of the remainder of the v isualized thoracic spine is seen as anterior osteophytes, intervertebral disc space narrowing and mul tilevel endplate sclerosis. Generalized osseous demineralization is noted. Visualized portions of the lungs are discussed in the chest x-ray of the same date. IMPRESSION: 1. No acute fracture or malalignment is seen in the thoracic spine. 2. Age indeterminant compression deformity of the L1 vertebral body. Correlate with point tenderness. This was not present on the remote exam of 2011.
--- NOTE | 2019-05-02 13:30 | CT ---
EXAMINATION TYPE: CT brain corky wo con DATE OF EXAM: 05/02/2019 COMPARISON: Brain 07/17/2018 HISTORY: 88-year-old male with a pain after fall backwards, hit head, on thinner CT DLP: 1334.7 mGycm Automated exposure control for dose reduction was used. Technique: Examination of the head was done in axial plane without intravenous contrast. Coronal and sagittal reconstructions performed. CT of the cervical spine was obtained in axial plane without intravenous injection of contrast mater ial. Coronal and sagittal reformatted images were obtained from the axial views for evaluation of f ractures, spinal alignment and canal. FINDINGS: Head: There is no evidence of acute intracranial hemorrhage, acute ischemic changes, mass, mass-effect, or extra-axial fluid collection. There is no effacement of cerebral sulci or basal subarachnoid cister ns. There is no midline shift. Helms-white matter distinction is preserved. Moderate generalized supratentorial volume loss. Old lacunar infarcts left basal ganglia and mild pro minence to the ventricular system. Moderate periventricular white matter hypodensities. Findings are unchanged from prior. Complete opacification left sphenoid sinus unchanged from 07/17/2018 orbits and globes are intact. Ma stoid air cells well pneumatized. No calvarial fracture. Cervical spine: No craniocervical junction anomaly, predental space widening, or prevertebral soft tissue swelling. D egenerative changes at the C1 dens articulation. Reversal of the normal cervical lordosis but with preserved alignment. Moderate disc/endplate degenerative change throughout. Additional scattered facet and uncovertebral joint degenerative change Results in variable neuroforaminal stenoses, moderate to severe left greater than right C4-C5, modera te on the right at C5-C6, and on the right at C6-C7. No acute fracture of the cervical spine. Visualized upper lungs show bronchiectasis and scattered endobronchial plugging. Some pulmonary nodul es are present measuring up to 5 mm and can be reassessed nonemergent follow-up CT chest Sagittal and coronal reformatted images confirm above findings. COMBINED IMPRESSION: 1. No moderate generalized atrophy and changes of chronic small vessel ischemic disease. No acute int racranial abnormality seen. 2. No acute fracture of the cervical spine. Moderate multilevel spondylotic change. 3. Severe chronic left sphenoid sinus disease. 4. Bronchiectasis in the visualized upper lungs with scattered endobronchial plugging. Additional sca ttered pulmonary nodules are present measuring up to 5 mm. Nonemergent follow-up contrast enhanced CT chest recommended to further evaluate.
[2019-05-02 14:44] VITALS: BP 121/69; PULSE 76; RESP 17
== END 2019-05-02 14:58 | disposition home or self-care (01) ==
LOC: EC 11:54
DX: M54.6 Pain in thoracic spine (principal); R90.82 White matter disease, unspecified; R93.0 Abnormal findings on diagnostic imaging of skull and head, not elsewhere classified; M47.812 Spondylosis without myelopathy or radiculopathy, cervical region; M50.30 Other cervical disc degeneration, unspecified cervical region; M48.02 Spinal stenosis, cervical region; J47.9 Bronchiectasis, uncomplicated; R91.8 Other nonspecific abnormal finding of lung field; R93.7 Abnormal findings on diagnostic imaging of other parts of musculoskeletal system; R60.0 Localized edema; I25.119 Atherosclerotic heart disease of native coronary artery with unspecified angina pectoris; I11.0 Hypertensive heart disease with heart failure; I50.9 Heart failure, unspecified; E78.5 Hyperlipidemia, unspecified; I25.2 Old myocardial infarction; E03.9 Hypothyroidism, unspecified; G62.9 Polyneuropathy, unspecified; R29.6 Repeated falls; Z87.891 Personal history of nicotine dependence; Z88.0 Allergy status to penicillin; Z79.1 Long term (current) use of non-steroidal anti-inflammatories (NSAID); Z79.01 Long term (current) use of anticoagulants; Z79.52 Long term (current) use of systemic steroids; Z79.890 Hormone replacement therapy; Z86.73 Personal history of transient ischemic attack (TIA), and cerebral infarction without residual deficits; Z79.899 Other long term (current) drug therapy; Z85.46 Personal history of malignant neoplasm of prostate; Z85.038 Personal history of other malignant neoplasm of large intestine; Z85.828 Personal history of other malignant neoplasm of skin; Z95.1 Presence of aortocoronary bypass graft; Z95.5 Presence of coronary angioplasty implant and graft; Z96.642 Presence of left artificial hip joint; Z90.49 Acquired absence of other specified parts of digestive tract; Z86.711 Personal history of pulmonary embolism; Z98.49 Cataract extraction status, unspecified eye; Z98.890 Other specified postprocedural states; Z99.3 Dependence on wheelchair; W05.0XXA Fall from non-moving wheelchair, initial encounter; Y92.009 Unspecified place in unspecified non-institutional (private) residence as the place of occurrence of the external cause
CPT/HCPCS: 36415; 70450; 71046; 72072; 72125; 80053; 85025; 85610; 93005; 96360; 96361; 99285